=== PATIENT | female | born 1955 | race Caucasian/White ===

== ENCOUNTER → 2016-11-29 | Outpatient (CLI) | payer BC ==
[2016-11-29 11:35] LABS: EKG EKG PERFORMED
[2016-11-29 12:12] LABS: CH 27.5; CHCM 33.3; HCT 38.7 % (34.0-46.0); HDW 2.64; HGB 12.7 gm/dL (11.4-16.0); MCH 27.1 pg (25.0-35.0); MCHC 32.7 g/dL (31.0-37.0); MCV 82.9 fL (80.0-100.0); Mean Platelet Volume 6.9; RBC 4.67 m/uL (3.80-5.40); RDW 13.7 % (11.5-15.5); WBC 5.8 k/uL (3.8-10.6)
[2016-11-29 12:18] LABS: ALT 36 U/L (9-52); AST 23 U/L (14-36); Alkaline Phosphatase 62 U/L (38-126); Anion Gap 11 mmol/L; Blood Urea Nitrogen 14 mg/dL (7-17); Calcium 9.7 mg/dL (8.4-10.2); Carbon Dioxide 26 mmol/L (22-30); Chloride 105 mmol/L (98-107); Glucose 102 mg/dL (74-99); Non-African American GFR(MDRD) >60 (>60 ml/min/1.73 sqM); Potassium 4.2 mmol/L (3.5-5.1); Sodium 142 mmol/L (137-145); Total Bilirubin 0.4 mg/dL (0.2-1.3); Total Protein 6.9 g/dL (6.3-8.2)
[2016-11-29 12:23] LABS: Partial Thromboplastin Time 23.8 sec (22.0-30.0); Prothrombin Time 10.5 sec (9.0-12.0)
[2016-11-29 12:35] LABS: Appearance,Urine Clear (Clear); Bacteria,Urine Rare /hpf; Bilirubin,Urine Negative (Negative); Glucose,Urine (UA) Negative (Negative); Ketones,Urine Negative (Negative); Leukocyte Esterase,Urine Trace (Negative); Nitrite,Urine Negative (Negative); Particle Count 1518; Protein,Urine Negative (Negative); Specific Gravity,Urine 1.011 (1.001-1.035); Squamous Epithelial Cell,Urine <1 /hpf (0-4); UA Billing (MACRO vs. MICRO) MICRO; Urobilinogen,Urine <2.0 mg/dL (<2.0); WBC,Urine 3 /hpf (0-5)
== END | disposition home or self-care (01) ==
LOC: LABPAT 11:19
PROVIDERS: ATTEND Orthopaedic Surgery
DX: Z01.810 Encounter for preprocedural cardiovascular examination (principal); Z01.812 Encounter for preprocedural laboratory examination
CPT/HCPCS: 80053; 81001; 85027; 85610; 85730; 87070; 93005

== ENCOUNTER 2017-01-01 07:30 | Inpatient (IN) | payer BC ==
[2017-01-15 15:58] VITALS: BMI 34.3
[2017-01-22] MEDS ORDERED: MELOXICAM 7.5 MG TAB PO ONE (05:00)
[2017-01-22] MEDS ORDERED: ACETAMINOPHEN TAB 500 MG TAB PO ONE (05:00)
[2017-01-22] MEDS ORDERED: ceFAZolin 2 GM in SODIUM CHLORIDE 0.9% 100 ML IVPB ONE (05:00)
[2017-01-22] MEDS ORDERED: TRANEXAMIC ACID 1,000 MG in SODIUM CHLORIDE 0.9% 100 ML IVPB ONE (05:00)
[2017-01-22] MEDS ORDERED: ONDANSETRON 4 MG/2 ML VIAL IVP ONE (05:27)
[2017-01-22] MEDS ORDERED: HYDROmorphone 1 MG/ML 1 ML SYRINGE IVP PRN ×4 (05:27→16:06)
[2017-01-22] MEDS ORDERED: MIDAZOLAM 2 MG/2 ML VIAL IV PRN (05:27)
[2017-01-22] MEDS ORDERED: DEXAMETHASONE SOD PHOSPHATE 10 MG/ML 1 ML VIAL IV ONE (05:27)
[2017-01-22] MEDS ORDERED: ROPIVACAINE 246.25 MG, EPINEPHrine 0.5 MG, KETOROLAC 30 MG, cloNIDine HCL/PF 80 MCG, WA... MISCELLANE ONE ×5 (09:03)
[2017-01-22] MEDS: LACTATED RINGERS 1,000 ML IV SCH (12:08)
[2017-01-22] MEDS ORDERED: LIDOCAINE 1% 20 ML VIAL (10MG/ML) FOR IV START SQ ONE (12:09)
[2017-01-22 12:13] LABS: Glucose,Whole Blood 107 mg/dL (75-99)
[2017-01-22 12:25] LABS: Appearance,Urine Clear (Clear); Bilirubin,Urine Negative (Negative); Glucose,Urine (UA) Negative (Negative); Ketones,Urine Trace (Negative); Leukocyte Esterase,Urine Small (Negative); Nitrite,Urine Negative (Negative); Particle Count 1988; Protein,Urine Negative (Negative); RBC,Urine <1 /hpf (0-5); Specific Gravity,Urine 1.012 (1.001-1.035); Squamous Epithelial Cell,Urine 1 /hpf (0-4); UA Billing (MACRO vs. MICRO) MICRO; Urobilinogen,Urine <2.0 mg/dL (<2.0); WBC,Urine 5 /hpf (0-5)
[2017-01-22] MEDS ORDERED: MIDAZOLAM 2 MG/2 ML VIAL IV ONE (14:04)
[2017-01-22] MEDS ORDERED: SODIUM CHLORIDE 0.9% 100 ML BAG ONE (14:15)
[2017-01-22] MEDS ORDERED: KETAMINE 10 MG/ML 20 ML VIAL ONE (14:15)
[2017-01-22] MEDS ORDERED: LIDOCAINE 1% INJ 10MG/ML (20 ML MDV) ONE (14:15)
[2017-01-22] MEDS ORDERED: MIDAZOLAM 2 MG/2 ML VIAL ONE (14:15)
[2017-01-22] MEDS ORDERED: TRANEXAMIC ACID 1,000 MG/10 ML VIAL ONE (14:15)
[2017-01-22] MEDS ORDERED: fentaNYL (PF) 50 MCG/ML 2 ML AMP ONE (14:15)
[2017-01-22] MEDS ORDERED: PROPOFOL 10 MG/ML 20 ML VIAL IV ONE (14:15)
[2017-01-22] MEDS: TRANEXAMIC ACID 1,000 MG in SODIUM CHLORIDE 0.9% 100 ML IVPB ONE ×2 (14:37→15:22)
[2017-01-22] MEDS ORDERED: ceFAZolin 3,000 MG in SODIUM CHLORIDE 0.9% IRRIGATIO 3,000 ML IRRIGATION ONE (14:59)
[2017-01-22] MEDS ORDERED: ROPIVACAINE 1,100 MG, SODIUM CHLORIDE 0.9% 330 ML MISCELLANE PRN ×2 (15:21)
[2017-01-22] MEDS ORDERED: LACTATED RINGERS 1,000 ML IV ONE (15:22)
--- NOTE | 2017-01-22 15:36 | P.OP ---
Date of Procedure: 01/22/17 Preoperative Diagnosis: Severe osteoarthritis right knee Postoperative Diagnosis: Severe osteoarthritis right knee Procedure(s) Performed: Right total knee arthroplasty Implants: Arreola [employer] Nephew Oxinium femoral component size 5, right narrow Arreola [employer] Nephew Debra II right nonporous tibial baseplate size 3 Arreola [employer] Nephew size 9 mm Legion XLPE dished articular insert, size 3-4 Arreola [employer] Nephew Debra II resurfacing patellar component, 32 mm All components were cemented using Clarks Simplex P bone cement with Tobramycin The articulation is ceramic on polyethylene. Anesthesia: spinal Surgeon: Rogelio Michael Gambling Broker #1: Heavenly Sesay Estimated Blood Loss (ml): 50 Pathology: other (Bone and cartilage) Condition: stable Disposition: PACU Indications for Procedure: After failure of conservative treatment we discussed the surgical and nonsurgical treatment options at length. Patient wishes to proceed with a total knee arthroplasty. Complications specific to this procedure were discussed at length, including but not limited to infection, bleeding, stiffness , and nerve injury. Patient is aware of all these complications and informed consent was obtained Operative Findings: The operative findings are consistent with severe osteoarthritis of the right knee Description of Procedure: Patient was seen in the preoperative area consent was reviewed and operative site was marked with a skin marker. An adductor canal pain catheter was placed by anesthesia in the preoperative area. Patient was then brought to the operating room and given preoperative antibiotics intravenously. A spinal anesthetic was administered by the anesthesia department. A tourniquet was placed on the upper thigh and the lower extremity was prepped and draped in usual sterile fashion. A gram of transexamic acid was given. A universal timeout was then performed which confirmed the patient's name, surgical site, ALLERGIES, and consent. The lower extremity was then exsanguinated and tourniquet was inflated to 250 mmHg. A standard and anterior midline approach to the knee was performed. The skin and subcutaneous tissue was dissected down to the patellar tendon. A medial parapatellar arthrotomy was then performed. The knee was then extended, the patellar was everted, and the knee was again flexed. Anterior horns of both menisci were excised, and a release was performed to the posterior medial aspect of the knee. On gross visual inspection, there was complete loss of articular cartilage in the medial and patellofemoral joint spaces. There was also significant cartilage damage in the lateral compartment. There were multiple periarticular osteophytes which were then removed with a Ronguer. The femoral canal was then opened with the appropriate drill, and the intramedullary femoral cutting guide was then placed and set for 4 of valgus. The distal femoral cutting block was then pinned in place, and the distal femur was then cut. The cutting block was then removed and the cut was checked for flatness. Next, the sizing guide was then placed and set for 3 external rotation based off of the epicondylar axis and Whitesides line. After the femur was sized, the appropriate 4-in-1 cutting block was then pinned in place. The anterior condyles were cut without notching. The posterior and chamfer cuts were performed while protecting the collateral ligaments. The cutting block was then removed, and the femoral canal was plugged with autologous bone. Attention was then directed to the tibia. The remaining ACL was removed with a Ronguer, and the tibia was then gently subluxed forward with a large bent knee retractor. Any remaining menisci was excised. The posterior lateral corner was cauterized in order to cauterize the lateral geniculate artery. The extra medullary tibial cutting guide was then placed, set for the appropriate rotation , slope, and depth of resection. The proximal tibia cutting guide was then pinned in place. Proximal tibia was then cut and sized. Next trials were then placed with the appropriate-sized insert. The knee was able to fully extend and flex to 130 and was stable throughout all range of motion. The knee was then extended, patella everted. Patella was then measured, and then using an osteotomy guide, the patella was cut at the appropriate level. The patella was then measured and drilled and the patella trial was then placed. The knee was then taken through range of motion with the patella trial and the patella tracked normally. The knee was then extended patella trial was then removed and the patella was everted. Knee was then flexed and lug holes were drilled through the femoral trial and the femoral trial was then removed. The tibial was then exposed, and the tibial broach guide was then pinned in place after it was set for the appropriate rotation to allow for the most coverage without overhang. The tibia was then reamed and broached. The cut surfaces of bone were then irrigated with pulsatile lavage. The posterior structures were injected with the ropivacaine solution. The knee was also irrigated with Irrisept solution. The components were then opened, the cement was mixed, and the components were then cemented in place. The cement was allowed to harden with the knee in full extension. While the cement was hardening, the remaining soft tissues were then injected with a ropivacaine solution, which consisted of 246.25 mg of ropivacaine, 0.5 mg of epinephrine, 30 mg of Toradol, 80 g of clonidine, and 48.45 mL of sterile water, for a total of 100 mL of fluid injected. After the cemented hardened. The tourniquet was released, and hemostasis was obtained. A second gram of transexamic acid was given. The knee was again irrigated. The knee was again taken through range of motion and found to be stable throughout all range of motion of 0-130 , and the patella tracked normally. The fascia was then closed with #2 strata fix suture. The subcutaneous tissue was closed with 3-0 Vicryl and 3-0 strata fix. Dermabond tape was used for the skin and placed with the knee in flexion. The patient was placed in a sterile dressing. Patient was then transferred to recovery room in stable condition. The bilingual administrative assistant GAIL Jurado was required due the complexity surgery and the need for a skilled processing assistant. She assisted in positioning, draping, retraction, and closure of the wound.
[2017-01-22] MEDS ORDERED: HYDROcodone/APAP 5-325MG 1 EACH TAB PO PRN ×2 (16:06)
[2017-01-22] MEDS ORDERED: DIAZEPAM 5 MG TAB PO PRN ×2 (16:06)
[2017-01-22] MEDS ORDERED: ONDANSETRON 4 MG/2 ML VIAL IVP PRN (16:06)
[2017-01-22] MEDS ORDERED: MAGNESIUM HYDROXIDE 2,400 MG/10 ML CUP PO PRN (16:06)
[2017-01-22] MEDS ORDERED: NA PHOS,M-B/NA PHOS,DI-BA 133 ML ENEMA RECTAL PRN (16:06)
[2017-01-22] MEDS ORDERED: BISACODYL 10 MG SUPP RECTAL PRN (16:06)
[2017-01-22] MEDS ORDERED: hydrOXYzine PAMOATE 25 MG CAP PO PRN (16:06)
[2017-01-22] MEDS ORDERED: NALOXONE 0.4 MG/ML 1 ML VIAL IV PRN (16:06)
[2017-01-22 16:19] VITALS: RESP 16
--- NOTE | 2017-01-22 16:39 | XR ---
EXAMINATION TYPE: XR knee limited RT DATE OF EXAM: 01/22/2017 COMPARISON: NONE TECHNIQUE: Two views submitted HISTORY: Post op FINDINGS: There is a prosthetic knee in near anatomic alignment. There is soft tissue edema and emphysema. IMPRESSION: 1. Postoperative change. Appears in near-anatomic alignment
[2017-01-22 16:41] LABS: Glucose,Whole Blood 145 mg/dL (75-99)
--- NOTE | 2017-01-22 20:01 | P.ONQ ---
Anesthesiology Proc Note - PNB - Peripheral Nerve Block Performed Right Adductor Canal Infusion Indication: Acute Post-Operative Pain, Dx/Pain Location (Right Knee) Specifically requested for management of pain by DrBrandi: Rogelio Michael Sedation Type: Sedate with meaningful contact maintained Preparation: Sterile Dressing Position: Supine Catheter: Indwelling Needle Types: Other (see comment) (Pajunk) Needle Size: 100mm (4") Needle Gauge: 18 Injectate: 0.5% Ropivacaine (see comment for volume) (30cc) Blood Aspirated: No Pain Paresthesia on Injection Noted: No Resistance on Injection: Normal Events: Uneventful and Well Tolerated
[2017-01-22 20:52] LABS: Glucose,Whole Blood 179 mg/dL (75-99)
[2017-01-22] MEDS ORDERED: SENNOSIDES-DOCUSATE SODIUM 1 EACH TAB PO SCH (21:00)
[2017-01-22] MEDS: ceFAZolin 2 GM in SODIUM CHLORIDE 0.9% 100 ML IVPB SCH (22:21)
[2017-01-22] MEDS: FLUoxetine HCL 10 MG CAP PO SCH (22:21)
[2017-01-22] MEDS: INSULIN LISPRO (humaLOG) 300 UNIT/3 ML VIAL SQ SCH (22:24)
[2017-01-23] MEDS: SODIUM CHLORIDE 0.9% 1,000 ML IV SCH ×2 (04:06→08:47)
[2017-01-23] MEDS: ceFAZolin 2 GM in SODIUM CHLORIDE 0.9% 100 ML IVPB SCH (05:45)
[2017-01-23] MEDS ORDERED: HYDROcodone/APAP 5-325MG 1 EACH TAB PO STA (06:58)
[2017-01-23 07:13] LABS: Glucose,Whole Blood 122 mg/dL (75-99)
--- NOTE | 2017-01-23 07:13 | P.PN ---
Progress Note - Text Postoperative day # 1 status post total knee arthroplasty, on adductor canal perineural catheter placed for postoperative analgesia. Ropivacaine 0.2% 8 mL per hour through ON-Q pump continuous infusion. Pain is well controlled. On visual analog scale 3/10 Patient is taking PRN oral pain medications. Catheter site: Looks Ok. There is no erythema or tenderness. Continue with the current pain management plan and will follow.
[2017-01-23 07:26] LABS: Basophils % (A) 0 %; CH 27.2; Eosinophils # (A) 0.1 k/uL (0-0.7); Eosinophils % (A) 1 %; HCT 32.7 % (34.0-46.0); HDW 2.58; HGB 10.1 gm/dL (11.4-16.0); Luc # (Auto) 0.19; Luc % (Auto) 2; Lymphocytes # (A) 2.1 k/uL (1.0-4.8); Lymphocytes % (A) 25 %; MCH 26.4 pg (25.0-35.0); MCV 85.3 fL (80.0-100.0); Mean Platelet Volume 7.3; Monocytes # (A) 0.5 k/uL (0-1.0); Monocytes % (A) 5 %; Neutrophils # (A) 5.7 k/uL (1.3-7.7); Neutrophils % (A) 66 %; RBC 3.83 m/uL (3.80-5.40); RDW 15.1 % (11.5-15.5); WBC 8.6 k/uL (3.8-10.6); WBC (Perox) 9.07
[2017-01-23] MEDS ORDERED: PANTOPRAZOLE 40 MG TABLET PO SCH (07:30)
[2017-01-23] MEDS: INSULIN LISPRO (humaLOG) 300 UNIT/3 ML VIAL SQ SCH ×2 (08:45→17:49)
[2017-01-23] MEDS: LACTATED RINGERS 1,000 ML IV SCH (08:46)
[2017-01-23] MEDS ORDERED: MELOXICAM 7.5 MG TAB PO SCH (09:00)
[2017-01-23] MEDS ORDERED: CALCIUM CARB-VIT D 500MG-200UN 1 EACH TAB PO SCH (09:00)
[2017-01-23] MEDS ORDERED: metFORMIN 500 MG TAB PO SCH (09:00)
[2017-01-23] MEDS ORDERED: PIOGLITAZONE 30 MG TAB PO SCH (09:00)
[2017-01-23] MEDS ORDERED: LISINOPRIL-HCTZ 20-25 MG 1 EACH TAB PO SCH (09:00)
[2017-01-23] MEDS ORDERED: ASPIRIN 325 MG TAB PO SCH (09:00)
[2017-01-23] MEDS ORDERED: LINAGLIPTIN 5 MG TABLET PO SCH (09:00)
[2017-01-23 09:25] VITALS: BP 99/63; PULSE 78; TEMP 97.7
--- NOTE | 2017-01-23 09:43 | P.DS ---
Providers Date of admission: 01/22/17 11:18 Expected date of discharge: 01/23/17 Attending physician: Rogelio Michael Consults: 01/22/17 16:06 Consult Physician Routine Consulting Provider: Silverio Orellana Consult Reason/Comments: medical management Do you want consulting provider notified?: Yes Primary care physician: Silverio Orellana - Discharge Diagnosis(es) (1) S/P total knee arthroplasty Current Visit: Yes Status: Acute (2) Primary osteoarthritis of right knee Current Visit: Yes Status: Acute Hospital Course: This is a 61-year-old female with known history of degenerative arthritis of the right knee. The patient presents for evaluation. After discussion and consideration patient elects to proceed with total knee arthroplasty. The patient is seen preoperatively by Dr. Michael and cleared for surgery. Patient is admitted to [facility] on 01/22/2017 for total knee arthroplasty. The procedures performed without complication or sequelae. The patient is doing well postoperatively. Labs and vital signs are stable on day of discharge. On day of discharge patient's knee incision is healing well. There is minimal erythema. There is mild drainage noted at this time. There is minimal soft tissue swelling to the knee. Patient has full foot and ankle motion without difficulty or pain. Neurovascular status to the right lower extremity is intact. Patient is discharged home in good condition. Please see med rec for accurate list of home medications. Plan - Discharge Summary New Discharge Prescriptions: New Aspirin 325 mg PO BID #60 tab HYDROcodone/APAP 5-325MG [Stevenson 5-325] 1 - 2 tab PO Q4-6H PRN #90 tab PRN Reason: Pain Sennosides-Docusate Sodium [Senokot-S] 1 tab PO BID #60 tablet No Action Naproxen Sodium [Aleve] 220 mg PO BID metFORMIN HCL [Glucophage] 500 mg PO BID Lisinopril/Hydrochlorothiazide [Zestoretic 20-25] 1 tab PO DAILY FLUoxetine HCL [PROzac] 10 mg PO BID sitaGLIPtin [Januvia] 100 mg PO DAILY Pioglitazone [Actos] 30 mg PO DAILY Omeprazole/Sodium Bicarbonate [Zegerid 20 mg Capsule] 1 cap PO DAILY Multivitamin [Men's Multi-Vitamin] 1 tab PO DAILY Ivarest 1 applic TOPICAL DAILY Calcium Carbonate/Vitamin D3 [Calcium 600-Vit D3 400 Caplet] 1 tab PO DAILY Discharge Medication List Calcium Carbonate/Vitamin D3 [Calcium 600-Vit D3 400 Caplet] 1 tab PO DAILY 07/03 [History] FLUoxetine HCL [PROzac] 10 mg PO BID 01/15/17 [History] Ivarest 1 applic TOPICAL DAILY 01/15/17 [History] Lisinopril/Hydrochlorothiazide [Zestoretic 20-25] 1 tab PO DAILY 01/15/17 [ History] Multivitamin [Men's Multi-Vitamin] 1 tab PO DAILY 01/15/17 [History] Naproxen Sodium [Aleve] 220 mg PO BID 01/15/17 [History] Omeprazole/Sodium Bicarbonate [Zegerid 20 mg Capsule] 1 cap PO DAILY 01/15/17 [ History] Pioglitazone [Actos] 30 mg PO DAILY 01/15/17 [History] metFORMIN HCL [Glucophage] 500 mg PO BID 01/15/17 [History] sitaGLIPtin [Januvia] 100 mg PO DAILY 01/15/17 [History] Aspirin 325 mg PO BID #60 tab 01/23/17 [Rx] HYDROcodone/APAP 5-325MG [Stevenson 5-325] 1 - 2 tab PO Q4-6H PRN #90 tab 01/23/17 [ Rx] Sennosides-Docusate Sodium [Senokot-S] 1 tab PO BID #60 tablet 01/23/17 [Rx] Follow up Appointment(s)/Referral(s): Rogelio Michael DO [Doctor of Osteopathic Medicine] - 2 Weeks Ambulatory/Diagnostic Orders: Continuous Passive Motion (CPM) Machine [DME.AMB1] Time Frame: 2 Weeks, Location : Determined By Patient Patient Instructions/Handouts: *Surgery [facility] - On-Q Pain Pump Discharge Instructions Activity/Diet/Wound Care/Special Instructions: Weightbearing as tolerated with a walker CPM 5-6h daily Daily dressing changes, keep incision clean and dry May shower if no drainage from incision [facility] with questions or concerns [phone] Discharge Disposition: HOME WITH HOME HEALTH SERVICES
[2017-01-23 11:04] LABS: Hemoglobin A1C 6.7 % (4.2-6.1)
[2017-01-23 11:28] LABS: Glucose,Whole Blood 108 mg/dL (75-99)
[2017-01-23] MEDS: FLUoxetine HCL 10 MG CAP PO SCH (11:35)
--- NOTE | 2017-01-23 13:37 | P.CONS ---
History of Present Illness - Reason for Consult Consult date: 01/23/17 Management of diabetes - History of Present Illness Is a 61-year-old white female well-known to me. She has significant right knee osteoarthritis. She underwent a right total knee arthroplasty with Dr. Rogelio Michael one day ago. She indicates her pain is controlled. She denies any chest pains, pressures, shortness breath. She is having some leg pain, controlled current medications. She has had a bowel movement today. She is tolerating regular diet. Her sugars seem well controlled with Accu-Cheks and Humalog scale. We restarted her Januvia and metformin in the a.m. 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 left hand, laser eye surg. Past Anesthesia/Blood Transfusion Reactions: No Reported Reaction Smoking Status: Former smoker - Past Family History Mother Family Medical History: Cancer, Deep Vein Thrombosis (DVT) Medications and Allergies Home Medications Medication Instructions Recorded Confirmed Type Calcium Carbonate/Vitamin D3 1 tab PO DAILY 01/15/17 01/22/17 History [Calcium 600-Vit D3 400 Caplet] FLUoxetine HCL [PROzac] 10 mg PO BID 01/15/17 01/22/17 History Ivarest 1 applic TOPICAL DAILY 01/15/17 01/22/17 History Lisinopril/Hydrochlorothiazide 1 tab PO DAILY 01/15/17 01/22/17 History [Zestoretic 20-25] Multivitamin [Men's Multi-Vitamin] 1 tab PO DAILY 01/15/17 01/22/17 History Naproxen Sodium [Aleve] 220 mg PO BID 01/15/17 01/22/17 History Omeprazole/Sodium Bicarbonate 1 cap PO DAILY 01/15/17 01/22/17 History [Zegerid 20 mg Capsule] Pioglitazone [Actos] 30 mg PO DAILY 01/15/17 01/22/17 History metFORMIN HCL [Glucophage] 500 mg PO BID 01/15/17 01/22/17 History sitaGLIPtin [Januvia] 100 mg PO DAILY 01/15/17 01/22/17 History Allergies Allergy/AdvReac Type Severity Reaction Status Date / Time No Known Allergies Allergy Verified 01/22/17 16:46 Physical Exam Vitals: Vital Signs Temp Pulse Pulse Pulse Resp BP Pulse Ox 01/23/17 07:00 97.7 F 78 16 99/63 97 01/23/17 02:03 98.1 F 76 16 105/61 95 01/22/17 19:45 82 16 110/72 94 L 01/22/17 19:30 78 16 119/81 96 01/22/17 19:15 89 16 103/65 94 L 01/22/17 19:00 88 16 111/69 96 01/22/17 18:45 87 16 110/75 94 L 01/22/17 18:30 82 16 112/70 93 L 01/22/17 18:15 82 16 102/68 96 01/22/17 18:00 98.1 F 88 16 120/76 96 01/22/17 17:30 83 16 113/65 94 L 01/22/17 17:15 16 113/62 95 01/22/17 17:00 84 16 113/62 96 01/22/17 16:45 83 16 112/60 97 01/22/17 16:30 82 16 114/59 96 01/22/17 16:15 85 16 110/56 96 01/22/17 16:06 98.4 F 84 14 110/56 95 Intake and Output 01/22/17 01/23/17 01/23/17 22:59 06:59 14:59 Intake Total 410 850 480 Output Total 450 Balance -40 850 480 Intake: IV 410 Intake, IV Titration 850 Amount Sodium Chloride 0.9% 1, 650 000 ml @ 65 mls/hr IV . [id number] OC Rx#:[id number] ceFAZolin 2 gm In Sodium 200 Chloride 0.9% 100 ml @ 100 mls/hr IVPB Q8H OC Rx#:[id number] Oral 480 Output: Urine 400 Estimated Blood Loss 50 Other: # Voids 1 # Bowel Movements 1 GENERAL: Well-appearing, well-nourished and in no acute distress. HEAD: Atraumatic, normocephalic. EYES: Pupils equal round and reactive to light, extraocular movements intact, sclera anicteric, conjunctiva are normal. ENT:nares patent, oropharynx clear without exudates. Moist mucous membranes. NECK: Normal range of motion, supple without lymphadenopathy or JVD, no thyromegaly LUNGS: Breath sounds clear to auscultation bilaterally and equal. No wheezes rales or rhonchi. HEART: Regular rate and rhythm without murmurs, rubs or gallops.S1S2 Normal ABDOMEN: Soft, nontender, normoactive bowel sounds. No guarding, no rebound. No masses appreciated. EXTREMITIES: right Knee dressing is clean dry and intact. There is no erythema , significant or ecchymosis noted NEUROLOGICAL: Cranial nerves II through XII grossly intact. Normal speech, normal gait. PSYCH: Normal mood, normal affect. SKIN: Warm, Dry, normal turgor, no rashes or lesions noted. Results CBC & Chem 7: 01/23/17 06:42 Labs: Abnormal Lab Results - Last 24 Hours (Table) 01/22/17 01/22/17 01/23/17 Range/Units 16:38 20:50 06:42 Hgb (11.4-16.0) gm/dL Hct (34.0-46.0) % POC Glucose (mg/dL) 145 H 179 H (75-99) mg/dL Hemoglobin A1c 6.7 H (4.2-6.1) % 01/23/17 01/23/17 01/23/17 Range/Units 06:42 06:51 11:21 Hgb 10.1 L (11.4-16.0) gm/dL Hct 32.7 L (34.0-46.0) % POC Glucose (mg/dL) 122 H 108 H (75-99) mg/dL Hemoglobin A1c (4.2-6.1) % Assessment and Plan Plan: Right knee osteoarthritis, status post right total knee arthroplasty, POD #1: She appears to be doing quite well after knee surgery. Dr. Michael in orthopedics for pain management. Type 2 diabetes: She'll continue on her Januvia and Actos and metformin, Accu- Cheks before meals and at bedtime and Humalog scale while inpatient. Hypertension: She'll continue on her Zestoretic . DVT prophylaxis: Aspirin per orthopedics. GERD/GI prophylaxis: She'll continue on Zegerid which she has at home medically she is doing well and can be discharged home if cleared by ORTHO
== END 2017-01-23 16:07 | disposition home health service (06) | DRG 470 ==
LOC: 2ORMAIN 01-22 11:18 → 3SUR 01-22 17:17
PROVIDERS: ADMIT Orthopaedic Surgery; ATTEND Orthopaedic Surgery
PROC: 0SRC0J9 Replacement of Right Knee Joint with Synthetic Substitute, Cemented, Open Approach (ICD-10-PCS; principal; 2017-01-22 14:05)
DX: M17.11 Unilateral primary osteoarthritis, right knee (principal); I10 Essential (primary) hypertension; E11.9 Type 2 diabetes mellitus without complications; K21.9 Gastro-esophageal reflux disease without esophagitis; Z79.84 Long term (current) use of oral hypoglycemic drugs; Z79.899 Other long term (current) drug therapy; Z87.891 Personal history of nicotine dependence; Z79.1 Long term (current) use of non-steroidal anti-inflammatories (NSAID)
CPT/HCPCS: 81001; 83036; 85025; 88300

== ENCOUNTER → 2017-01-18 | Outpatient (CLI) | payer BC ==
[2017-01-18 14:53] LABS: Basophils % (A) 1 %; CH 27.2; CHCM 32.8; Eosinophils # (A) 0.2 k/uL (0-0.7); Eosinophils % (A) 2 %; HCT 39.2 % (34.0-46.0); HDW 2.63; HGB 12.6 gm/dL (11.4-16.0); Luc # (Auto) 0.19; Luc % (Auto) 3; Lymphocytes # (A) 2.4 k/uL (1.0-4.8); Lymphocytes % (A) 32 %; MCH 26.8 pg (25.0-35.0); MCHC 32.2 g/dL (31.0-37.0); MCV 83.2 fL (80.0-100.0); Mean Platelet Volume 7.3; Monocytes # (A) 0.4 k/uL (0-1.0); Monocytes % (A) 5 %; Neutrophils # (A) 4.3 k/uL (1.3-7.7); Neutrophils % (A) 58 %; RBC 4.71 m/uL (3.80-5.40); RDW 14.9 % (11.5-15.5); WBC 7.5 k/uL (3.8-10.6); WBC (Perox) 7.97
[2017-01-18 14:58] LABS: Appearance,Urine Cloudy (Clear); Bacteria,Urine Rare /hpf; Bilirubin,Urine Negative (Negative); Glucose,Urine (UA) Negative (Negative); Ketones,Urine Trace (Negative); Leukocyte Esterase,Urine Large (Negative); Nitrite,Urine Negative (Negative); Particle Count 3917; Protein,Urine Negative (Negative); RBC,Urine 2 /hpf (0-5); Squamous Epithelial Cell,Urine 5 /hpf (0-4); UA Billing (MACRO vs. MICRO) MICRO; Urobilinogen,Urine <2.0 mg/dL (<2.0); WBC,Urine 44 /hpf (0-5)
[2017-01-18 14:59] LABS: Partial Thromboplastin Time 23.6 sec (22.0-30.0); Prothrombin Time 10.5 sec (9.0-12.0)
[2017-01-18 15:05] LABS: ALT 37 U/L (9-52); AST 27 U/L (14-36); Alkaline Phosphatase 63 U/L (38-126); Anion Gap 10 mmol/L; Blood Urea Nitrogen 14 mg/dL (7-17); Calcium 9.6 mg/dL (8.4-10.2); Carbon Dioxide 26 mmol/L (22-30); Chloride 103 mmol/L (98-107); Glucose 98 mg/dL (74-99); Non-African American GFR(MDRD) >60 (>60 ml/min/1.73 sqM); Potassium 3.9 mmol/L (3.5-5.1); Sodium 139 mmol/L (137-145); Total Bilirubin 0.5 mg/dL (0.2-1.3); Total Protein 7.1 g/dL (6.3-8.2)
== END | disposition home or self-care (01) ==
LOC: LABPAT 14:31
PROVIDERS: ATTEND Orthopaedic Surgery
DX: Z01.812 Encounter for preprocedural laboratory examination (principal)
CPT/HCPCS: 80053; 81001; 85025; 85610; 85730

== ENCOUNTER → 2017-05-08 | Outpatient (CLI) | payer BC ==
--- NOTE | 2017-05-08 17:47 | US ---
EXAMINATION TYPE: US venous doppler duplex LE LT DATE OF EXAM: 05/08/2017 5:14 PM COMPARISON: CLINICAL HISTORY: I80.9 Thrombophlebitis. Left leg pain. Patient states on January 22 she had a righ t total knee replacement. No hx of blood clots or on blood thinners. SIDE PERFORMED: Left TECHNIQUE: The lower extremity deep venous system is examined utilizing real time linear array sonog giuseppe with graded compression, doppler sonography and color-flow sonography. VESSELS IMAGED: External Iliac Vein (EIV) Common Femoral Vein Deep Femoral Vein Greater Saphenous Vein * Femoral Vein Popliteal Vein Small Saphenous Vein * Proximal Calf Veins (* superficial vessels) Left Leg: Appears negative for DVT Negative exam. No evidence of deep venous thrombosis in the left leg. IMPRESSION: Grayscale, color doppler, spectral doppler imaging performed of the deep veins of the lo wer extremities. There is normal flow, compressibility, vascular waveforms.
== END | disposition home or self-care (01) ==
LOC: RADUSMAIN 16:35
PROVIDERS: ATTEND Orthopaedic Surgery
DX: I80.9 Phlebitis and thrombophlebitis of unspecified site (principal); Z96.651 Presence of right artificial knee joint

== ENCOUNTER → 2018-03-26 | Outpatient (CLI) | payer BC ==
--- NOTE | 2018-03-26 12:13 | MM ---
Reason for exam: additional evaluation requested from prior study. Last mammogram was performed 2 years and 2 months ago. History: Patient is postmenopausal and is nulliparous. Family history of breast cancer in maternal aunt. Physical Findings: Nurse did not find any significant physical abnormalities on exam. MG 3D Diag Mammo W/Cad ANTONETTE Bilateral CC and MLO view(s) were taken. Prior study comparison: January 17, 2016, bilateral MG 3d diag mammo w/cad ANTONETTE. January 27, 2015, left breast MG work up mamm w CAD LT. The breast tissue is heterogeneously dense. This may lower the sensitivity of mammography. Finding #1: There is a typically benign, stable, circumscribed, round, oval masses. Finding #2: There are typically benign calcifications in both breasts. No suspicious abnormality. No significant changes in finding since January 17, 2016 and January 27, 2015. These results were verbally communicated with the patient and result sheet given to the patient on 03/26/18. ASSESSMENT: Benign, BI-RAD 2 RECOMMENDATION: Routine screening mammogram of both breasts in 1 year.
== END | disposition home or self-care (01) ==
LOC: RADMAMWWP 10:44
PROVIDERS: ATTEND Family Medicine
DX: R92.8 Other abnormal and inconclusive findings on diagnostic imaging of breast (principal)
CPT/HCPCS: 77062; 77066

== ENCOUNTER → 2019-07-03 | Outpatient (CLI) | payer BC ==
--- NOTE | 2019-07-06 14:00 | MM ---
Reason for exam: screening (asymptomatic). Last mammogram was performed 1 year and 3 months ago. History: Patient is postmenopausal and is nulliparous. Family history of breast cancer in maternal aunt. Physical Findings: A clinical breast exam by your physician is recommended on an annual basis and results should be correlated with mammographic findings. MG 3D Screening Mammo W/Cad Bilateral CC and MLO view(s) were taken. Prior study comparison: March 26, 2018, bilateral MG 3d diag mammo w/cad ANTONETTE. January 17, 2016, bilateral MG 3d diag mammo w/cad ANTONETTE. The breast tissue is heterogeneously dense. This may lower the sensitivity of mammography. There are benign appearing round calcifications in the left breast. There is chronic nodularity bilaterally. There is no discrete abnormality. ASSESSMENT: Benign, BI-RAD 2 RECOMMENDATION: Routine screening mammogram of both breasts in 1 year.
== END | disposition home or self-care (01) ==
LOC: RADMAMWWP 11:12
PROVIDERS: ATTEND Family Medicine
DX: Z12.31 Encounter for screening mammogram for malignant neoplasm of breast (principal)
CPT/HCPCS: 77063; 77067

== ENCOUNTER 2019-12-11 19:02 | Emergency (ER) | payer BC ==
[2019-12-11 19:13] VITALS: TEMP 98.6
[2019-12-11] MEDS ORDERED: SODIUM CHLORIDE 0.9% 500 ML 500 ML IV STA (19:33)
[2019-12-11] MEDS ORDERED: ASPIRIN 81 MG PO STA (19:33)
--- NOTE | 2019-12-11 19:35 | ED ---
General Adult HPI - General Chief complaint: Neuro Symptoms/Deficit Stated complaint: Lip numbness Time Seen by Provider: 12/11/19 19:17 Source: patient Mode of arrival: ambulatory Limitations: no limitations - History of Present Illness Initial comments: Dictation was produced using KAL dictation software. please excuse any grammatical, word or spelling errors. This patient was cared for during a federal and state declared state of emergenc y secondary to Covid 19 Chief Complaint: 64-year-old female past medical history diabetes, hypertension presents with left lip numbness. History of Present Illness: 64-year-old female she has had multiple episodes of left lip numbness. Patient states that since yesterday she had 3-4 episodes were left lower lip would go numb for several seconds. It would happen intermittently. No exacerbating or mitigating factors. Patient is concerned she was having a stroke. She called a special hotline told her to seek medical attention. Patient has history of diabetes, hypertension. She denies any history of stroke in the past. As no other neurologic symptoms. The ROS documented in this emergency department record has been reviewed and confirmed by me. Those systems with pertinent positive or negative responses have been documented in the HPI. All other systems are other negative and/or noncontributory. PHYSICAL EXAM: General Impression: Alert and oriented x3, not in acute distress HEENT: Normocephalic atraumatic, extra-ocular movements intact, pupils equal and reactive to light bilaterally, mucous membranes moist. Cardiovascular: Heart regular rate and rhythm Chest: Able to complete full sentences, no retractions, no tachypnea Abdomen: abdomen soft, non-tender, non-distended, no organomegaly Musculoskeletal: Pulses present and equal in all extremities, no peripheral edema Motor: no focal deficits noted Neurological: CN II-XII grossly intact, no focal motor or sensory deficits noted, NIH 0 Skin: Intact with no visualized rashes Psych: Normal affect and mood ED course: 64-year-old female presents with intermittent episodes of left lower lip numbness. Patient does have stroke risk factors. Patient's asymptomatic at this time. NIH score is 0. Upon arrival are within acceptable limits. Laboratory evaluation obtained. X-ray and computed tomography scan of the brain is unremarkable. Patient reevaluated at bedside after short ER observation. Patient has not had any recurrence symptoms of left lower lip numbness. She states she feels well at this time. Disposition options were discussed with patient. Patient has an ABCD 2 score of 2 she is considered low risk. [facility] or to be discharge and follow-up with her primary care physician and to have strict return precautions. Patient preferred to be discharged to follow-up with her primary care doctor. She understands that she should seek emergent medical attention if she has recurrence of symptoms or worsening symptoms especially one-sided deficits. Patient is understandable and agreeable to plan. Patient's family care physician is Dr. Orellana. Dr. Orellana is made aware of the patient's presentation and disposition plan. Patient was given an aspirin. EKG interpretation: Ventricular rate 76, normal sinus rhythm, WV interval 136, QRS 92, QTc 447. No WV prolongation, no QTC prolongation, no ST or T-wave changes noted. EKG compared to 11/29/2016 showing no changes. Overall, this EKG is unremarkable - Related Data Home Medications Medication Instructions Recorded Confirmed Ivarest 1 applic TOPICAL DAILY 01/15/17 01/22/17 RX: Calcium Carbonate/Vitamin D3 1 tab PO DAILY 01/15/17 01/22/17 [Calcium 600-Vit D3 400 Caplet] RX: FLUoxetine HCL [PROzac] 10 mg PO BID 01/15/17 01/22/17 RX: Lisinopril/Hydrochlorothiazide 1 tab PO DAILY 01/15/17 01/22/17 [Zestoretic 20-25] RX: Multivitamin [Men's 1 tab PO DAILY 01/15/17 01/22/17 Multi-Vitamin] RX: Omeprazole/Sodium Bicarbonate 1 cap PO DAILY 01/15/17 01/22/17 [Zegerid 20 mg Capsule] RX: Pioglitazone [Actos] 30 mg PO DAILY 01/15/17 01/22/17 RX: metFORMIN HCL [Glucophage] 500 mg PO BID 01/15/17 01/22/17 RX: sitaGLIPtin [Januvia] 100 mg PO DAILY 01/15/17 01/22/17 Previous Rx's Medication Instructions Recorded HYDROcodone/APAP 5-325MG [[place] 1 - 2 tab PO Q4-6H PRN #90 tab 01/23/17 5-325] RX: Aspirin 325 mg PO BID tab 01/23/17 RX: Aspirin 325 mg PO BID #60 tab 01/23/17 RX: Meloxicam [Mobic] 7.5 mg PO DAILY tab 01/23/17 Sennosides-Docusate Sodium 1 tab PO BID #60 tablet 01/23/17 [Senokot-S] Allergies Allergy/AdvReac Type Severity Reaction Status Date / Time No Known Allergies Allergy Verified 12/11/19 19:13 Review of Systems ROS Statement: Those systems with pertinent positive or pertinent negative responses have been documented in the HPI. ROS Other: All systems not noted in ROS Statement are negative. Past Medical History Past Medical History: Diabetes Mellitus, GERD/Reflux, Hypertension, Osteoarthritis (OA), Skin Disorder Additional Past Medical History / Comment(s): currently has poison salvador on both legs,both arms-still oozing, will inform surgeon History of Any Multi-Drug Resistant Organisms: None Reported Past Surgical History: Orthopedic Surgery Additional Past Surgical History / Comment(s): fatty tumor removed from shoulder, repair of fx. left hand, laser eye surg. Past Anesthesia/Blood Transfusion Reactions: No Reported Reaction Past Psychological History: Anxiety Smoking Status: Former smoker - Past Family History Mother Family Medical History: Cancer, Deep Vein Thrombosis (DVT) General Exam Limitations: no limitations Course Vital Signs 12/11/19 12/11/19 19:10 20:10 Temperature 98.6 F Pulse Rate 83 72 Respiratory 16 18 Rate Blood Pressure 117/63 103/62 O2 Sat by Pulse 98 100 Oximetry Medical Decision Making - Lab Data Result diagrams: 12/11/19 19:35 12/11/19 19:35 Lab Results 12/11/19 12/11/19 12/11/19 Range/Units 19:35 19:35 19:35 WBC 6.6 (3.8-10.6) k/uL RBC 4.13 (3.80-5.40) m/uL Hgb 10.7 L (11.4-16.0) gm/dL Hct 33.8 L (34.0-46.0) % MCV 81.8 (80.0-100.0) fL MCH 25.9 (25.0-35.0) pg MCHC 31.6 (31.0-37.0) g/dL RDW 14.8 (11.5-15.5) % Plt Count 267 (150-450) k/uL Neutrophils % 53 % Lymphocytes % 35 % Monocytes % 6 % Eosinophils % 3 % Basophils % 1 % Neutrophils # 3.5 (1.3-7.7) k/uL Lymphocytes # 2.3 (1.0-4.8) k/uL Monocytes # 0.4 (0-1.0) k/uL Eosinophils # 0.2 (0-0.7) k/uL Basophils # 0.0 (0-0.2) k/uL PT 9.7 (9.0-12.0) sec INR 0.9 (<1.2) APTT 23.3 (22.0-30.0) sec Sodium 130 L (137-145) mmol/L Potassium 3.6 (3.5-5.1) mmol/L Chloride 94 L (98-107) mmol/L Carbon Dioxide 25 (22-30) mmol/L Anion Gap 11 mmol/L BUN 18 H (7-17) mg/dL Creatinine 0.87 (0.52-1.04) mg/dL Est GFR (CKD-EPI)AfAm 82 (>60 ml/min/1.73 sqM) Est GFR (CKD-EPI)NonAf 71 (>60 ml/min/1.73 sqM) Glucose 165 H (74-99) mg/dL Calcium 9.3 (8.4-10.2) mg/dL Total Bilirubin 0.3 (0.2-1.3) mg/dL AST 23 (14-36) U/L ALT 14 (4-34) U/L Alkaline Phosphatase 75 (38-126) U/L Troponin I (0.000-0.034) ng/mL Total Protein 6.6 (6.3-8.2) g/dL Albumin 4.0 (3.5-5.0) g/dL 12/11/19 Range/Units 19:35 WBC (3.8-10.6) k/uL RBC (3.80-5.40) m/uL Hgb (11.4-16.0) gm/dL Hct (34.0-46.0) % MCV (80.0-100.0) fL MCH (25.0-35.0) pg MCHC (31.0-37.0) g/dL RDW (11.5-15.5) % Plt Count (150-450) k/uL Neutrophils % % Lymphocytes % % Monocytes % % Eosinophils % % Basophils % % Neutrophils # (1.3-7.7) k/uL Lymphocytes # (1.0-4.8) k/uL Monocytes # (0-1.0) k/uL Eosinophils # (0-0.7) k/uL Basophils # (0-0.2) k/uL PT (9.0-12.0) sec INR (<1.2) APTT (22.0-30.0) sec Sodium (137-145) mmol/L Potassium (3.5-5.1) mmol/L Chloride (98-107) mmol/L Carbon Dioxide (22-30) mmol/L Anion Gap mmol/L BUN (7-17) mg/dL Creatinine (0.52-1.04) mg/dL Est GFR (CKD-EPI)AfAm (>60 ml/min/1.73 sqM) Est GFR (CKD-EPI)NonAf (>60 ml/min/1.73 sqM) Glucose (74-99) mg/dL Calcium (8.4-10.2) mg/dL Total Bilirubin (0.2-1.3) mg/dL AST (14-36) U/L ALT (4-34) U/L Alkaline Phosphatase (38-126) U/L Troponin I <0.012 (0.000-0.034) ng/mL Total Protein (6.3-8.2) g/dL Albumin (3.5-5.0) g/dL Disposition Clinical Impression: TIA (transient ischemic attack) Disposition: HOME SELF-CARE Condition: Fair Instructions (If sedation given, give patient instructions): Transient Ischemic Attack (ED) Additional Instructions: Today you were evaluated for transient ischemic attack. This is considered a mini stroke. It is important that you seek immediate medical attention with any recurrence or any sort of new strokelike symptoms. Symptoms can be weakness, numbness that someone side of the body, confusion or slurred speech. The sooner you come to the emergency department the more likely it is you make a significant recovery. Otherwise you aren't strongly advised to follow-up with her primary care physician as soon as possible. Is patient prescribed a controlled substance at d/c from ED?: No Referrals: Silverio Orellana MD [Primary Care Provider] - 1-2 days Time of Disposition: 20:36
[2019-12-11 19:49] LABS: Basophils % (A) 1 %; Eosinophils # (A) 0.2 k/uL (0-0.7); Eosinophils % (A) 3 %; HCT 33.8 % (34.0-46.0); HGB 10.7 gm/dL (11.4-16.0); Lymphocytes # (A) 2.3 k/uL (1.0-4.8); Lymphocytes % (A) 35 %; MCH 25.9 pg (25.0-35.0); MCHC 31.6 g/dL (31.0-37.0); MCV 81.8 fL (80.0-100.0); Mean Platelet Volume 6.9; Monocytes # (A) 0.4 k/uL (0-1.0); Monocytes % (A) 6 %; Neutrophils # (A) 3.5 k/uL (1.3-7.7); Neutrophils % (A) 53 %; Platelet Count 267 k/uL (150-450); RBC 4.13 m/uL (3.80-5.40); RDW 14.8 % (11.5-15.5); WBC 6.6 k/uL (3.8-10.6)
--- NOTE | 2019-12-11 19:54 | CT ---
EXAMINATION TYPE: CT brain wo con DATE OF EXAM: 12/11/2019 COMPARISON: None HISTORY: facial numbness CT DLP: 1098.4 mGycm Automated exposure control for dose reduction was used. Ventricles have normal size. There is no mass effect nor midline shift. There is no sign of intracran ial hemorrhage. Calvarium is intact. There is no evidence of cerebral edema. IMPRESSION: Negative unenhanced head CT scan.
--- NOTE | 2019-12-11 19:55 | XR ---
EXAMINATION TYPE: XR chest 2V DATE OF EXAM: 12/11/2019 COMPARISON: NONE HISTORY: Altered mental status TECHNIQUE: FINDINGS: Heart is normal. Lungs are clear of infiltrate. There is no heart failure. There is no pleu ral effusion. Bony thorax is intact. IMPRESSION: No active cardiopulmonary disease.
[2019-12-11 20:01] LABS: Calcium 9.3 mg/dL (8.4-10.2); Potassium 3.6 mmol/L (3.5-5.1); Total Bilirubin 0.3 mg/dL (0.2-1.3); Total Protein 6.6 g/dL (6.3-8.2)
[2019-12-11 20:13] VITALS: BP 103/62; PULSE 72; RESP 18
[2019-12-11 20:15] LABS: INR 0.9 (<1.2); Partial Thromboplastin Time 23.3 sec (22.0-30.0); Prothrombin Time 9.7 sec (9.0-12.0)
== END 2019-12-11 21:06 | disposition home or self-care (01) ==
LOC: EC 19:02
DX: G45.9 Transient cerebral ischemic attack, unspecified (principal); E11.9 Type 2 diabetes mellitus without complications; I10 Essential (primary) hypertension; K21.9 Gastro-esophageal reflux disease without esophagitis; F41.9 Anxiety disorder, unspecified; Z79.84 Long term (current) use of oral hypoglycemic drugs; Z79.899 Other long term (current) drug therapy; Z87.891 Personal history of nicotine dependence
CPT/HCPCS: 36415; 70450; 71046; 80053; 84484; 85025; 85610; 85730; 93005; 96360; 99284

== ENCOUNTER → 2020-01-05 | Outpatient (CLI) | payer BC ==
--- NOTE | 2020-01-05 15:37 | XR ---
EXAMINATION TYPE: XR hand complete LT DATE OF EXAM: 01/05/2020 COMPARISON: NONE HISTORY: 64-year-old female S60.222A TECHNIQUE: 3 views FINDINGS: Chronic healed fracture deformity of the fifth metacarpal shaft. Mild/moderate degenerative change at the first CMC joint with marginal spurring and joint space narrowing. [id number] degenerative spurring at the second DIP joint. Otherwise, no acute fracture, subluxation, dislocation. IMPRESSION: Old healed fracture deformity of the fifth metacarpal shaft. Some osteoarthritic change at the base o f the thumb and the index finger DIP joint. No acute osseous abnormality seen.
== END | disposition home or self-care (01) ==
LOC: RADXRMAIN 14:41
PROVIDERS: ATTEND Family Medicine
DX: S60.222A Contusion of left hand, initial encounter (principal); Z87.81 Personal history of (healed) traumatic fracture

== ENCOUNTER → 2020-08-03 | Outpatient (CLI) | payer MEDICARE ==
--- NOTE | 2020-08-03 15:18 | XR ---
EXAMINATION TYPE: XR Hip Complete RT DATE OF EXAM: 08/03/2020 CLINICAL HISTORY: pain TECHNIQUE: AP and frogleg views of the right hip are obtained. COMPARISON: None. FINDINGS: There is no acute fracture/dislocation evident. The joint space appears within normal li mits. The overlying soft tissue appears unremarkable. IMPRESSION: 1. There is no acute fracture or dislocation. ICD 10 NO FRACTURE, INITIAL EVALUATION
--- NOTE | 2020-08-03 15:33 | XR ---
EXAMINATION TYPE: XR lumbosacral spine min 4V DATE OF EXAM: 08/03/2020 CLINICAL HISTORY: pain COMPARISON: NONE TECHNIQUE: Frontal, lateral, and oblique images of the lumbar spine are obtained. FINDINGS: There are 5 lumbar type vertebral bodies identified. The lumbar spine shows satisfactory alignment without evidence of acute fracture or dislocation. Vertebral body heights are within normal limits. Moderate multilevel degenerative disc space narrowing. Mild curvature convex to the right. The overlying soft tissue appears unremarkable. IMPRESSION: No acute fracture or dislocation is seen in the lumbar spine.ICD 10 NO FRACTURE, INITIAL EVALUATION
== END | disposition home or self-care (01) ==
LOC: RADXRMAIN 13:47
PROVIDERS: ATTEND Family Medicine
DX: M54.5 Low back pain (principal); M25.551 Pain in right hip
CPT/HCPCS: 72110; 73502

== ENCOUNTER → 2020-10-27 | Outpatient (CLI) | payer MEDICARE ==
--- NOTE | 2020-10-28 15:01 | MM ---
Reason for exam: screening (asymptomatic). Last mammogram was performed 1 year and 4 months ago. History: Patient is postmenopausal and is nulliparous. Family history of breast cancer in maternal aunt. Physical Findings: A clinical breast exam by your physician is recommended on an annual basis and results should be correlated with mammographic findings. MG 3D Screening Mammo W/Cad Bilateral CC and MLO view(s) were taken. Prior study comparison: July 03, 2019, bilateral MG 3d screening mammo w/cad. March 26, 2018, bilateral MG 3d diag mammo w/cad [facility]. The breast tissue is heterogeneously dense. This may lower the sensitivity of mammography. No significant changes when compared with prior studies. ASSESSMENT: Benign, BI-RAD 2 RECOMMENDATION: Routine screening mammogram of both breasts in 1 year.
== END | disposition home or self-care (01) ==
LOC: RADMAMWWP 15:15
PROVIDERS: ATTEND Family Medicine
DX: Z12.31 Encounter for screening mammogram for malignant neoplasm of breast (principal); Z78.0 Asymptomatic menopausal state; Z80.3 Family history of malignant neoplasm of breast
CPT/HCPCS: 77063; 77067

== ENCOUNTER → 2020-11-24 | Outpatient (CLI) | payer MEDICARE | END | disposition home or self-care (01) | LOC: LABWHC1 14:01 | PROVIDERS: ATTEND Nurse Practitioner Women's Health | DX: H81.13 Benign paroxysmal vertigo, bilateral (principal); R53.83 Other fatigue; R06.02 Shortness of breath | CPT/HCPCS: 36415; 93005 ==

== ENCOUNTER → 2020-12-01 | Outpatient (CLI) | payer MEDICARE ==
[~2020-12-01] MED LIST: DOBUTamine DRIP for NUC MED 500 MG in DEXTROSE/WATER 1 250ML.BAG IV PRN
--- NOTE | 2020-12-01 15:23 | ECHOS ---
STRESS ECHOCARDIOGRAM LUMASON: INDICATIONS: Dyspnea, fatigue MEDICATIONS: BASELINE HEART RATE: 63 BASELINE BLOOD PRESSURE: 96/57 MAXIMUM HEART RATE: 102 MAXIMUM BLOOD PRESSURE: 114/53 85% MPHR: 132 100% MPHR: 155 METS: N/A MAXIMUM STAGE REACHED: 3 TOTAL EXERCISE TIME: 11:32 CLINICAL INFORMATION: Baseline rhythm is a sinus mechanism, rate of 63, normal axis and intervals. Normal echocardiogram. Baseline blood pressure 96/57 mmHg. Patient received an infusion of dobutamine per protocol. Peak rate 102 beats per minute which is equal to 66% of maximum predicted heart rate. Peak blood pressure 94/46 mmHg. Electrocardiograph monitoring revealed no evidence of diagnostic ischemic ST deviation. Baseline echocardiogram revealed normal wall thickening and motion. At peak infusion, there was normal wall motion augmentation with no hypokinesis or dyskinesis. CONCLUSION: 1. Nondiagnostic electrocardiograph response to dobutamine infusion secondary to the inability to achieve 85% of maximum predicted heart rate. 2. Nondiagnostic stress echocardiogram secondary to the inability to achieve 85% of maximum predicted heart rate. At the rate achieved, there was no evidence of stress- induced ischemia. MMODL / IJN: [id number] /
== END | disposition home or self-care (01) ==
LOC: RADNMMAIN 08:47
PROVIDERS: ATTEND Family Medicine
DX: R06.00 Dyspnea, unspecified (principal); R53.83 Other fatigue
CPT/HCPCS: C8930; J1250; Q9950; 93351

== ENCOUNTER → 2021-09-15 | Outpatient (CLI) | payer MEDICARE ==
--- NOTE | 2021-09-16 18:40 | US ---
EXAMINATION TYPE: US extremity nonvasc mass RT DATE OF EXAM: 09/15/2021 COMPARISON: NONE CLINICAL HISTORY: 66-year-old female R22.41 LOCALIZED SWELLING MASS LUMP LOWER LIMB. TECHNIQUE: Targeted ultrasound examination at the site of patient's palpable abnormality medial right thigh. FINDINGS: Crotch Breaker notes: Well circumscribed mass at patients palpable measuring 2.0 x 1.1 x 2.3cm IMPRESSION: Findings suggest a 2.3 cm subcutaneous lipoma just below the skin surface at the patient's medial rig ht thigh palpable site. This can be followed clinically. If any enlargement is noted or if the area b ecomes symptomatic, surgical excision could be considered.
== END | disposition home or self-care (01) ==
LOC: RADUSWWP 14:57
PROVIDERS: ATTEND Family Medicine
DX: R22.41 Localized swelling, mass and lump, right lower limb (principal)

== ENCOUNTER → 2021-12-13 | Outpatient (CLI) | payer MEDICARE ==
--- NOTE | 2021-12-13 12:06 | US ---
EXAMINATION TYPE: US abdomen complete DATE OF EXAM: 12/13/2021 COMPARISON: NONE CLINICAL HISTORY: K76.9 LIVER DISEASE. Liver lesion seen on MRI at another facility. EXAM MEASUREMENTS: Liver Length: 11.3 cm Gallbladder Wall: 0.2 cm CBD: 0.5 cm Spleen: 11.0 cm Right Kidney: 10.6 x 4.5 x 5.1 cm Left Kidney: 9.6 x 5.6 x 5.3 cm Pancreas: visualized portions wnl Liver: multiple complex cystic areas throughout, largest left lobe measures 4.2 x 3.5 x 3.9 cm. Gallbladder: No stones seen Evidence for sonographic Patterson's sign: No CBD: wnl Spleen: wnl Right Kidney: No hydronephrosis or masses seen Left Kidney: No hydronephrosis or masses seen Upper IVC: wnl Abd Aorta: wnl IMPRESSION: 1. Multiple complex septated cysts within the liver
--- NOTE | 2021-12-14 08:03 | MM ---
Reason for Exam: Screening (asymptomatic). Last mammogram was performed 1 year(s) and 1 month(s) ago. Patient History: Menarche at age 14. Patient has no children. Postmenopausal. Patient used Hormonal Contraceptives for 15 years. Estrogen and Progesterone, starting at age 50 for 3 years. Maternal aunt had breast cancer. Risk Values: Susi 5 year model risk: 1.7%. NCI Lifetime model risk: 6.1%. Prior Study Comparison: 03/26/2018 Bilateral Diagnostic Mammogram, [facility]. 07/03/2019 Bilateral Screening Mammogram, [facility]. 10/27/2020 Bilateral Screening Mammogram, [facility]. Tissue Density: The breast tissue is heterogeneously dense. This may lower the sensitivity of mammography. Findings: Analyzed By CAD. There is no suspicious group of microcalcifications or new suspicious mass in either breast. Stable benign-appearing calcifications both breasts. Overall Assessment: Benign, BI-RAD 2 Management: Screening Mammogram of both breasts in 1 year. A clinical breast exam by your physician is recommended on an annual basis and results should be correlated with mammographic findings. Electronically signed and approved by: Rafael Dominguez M.D. Radiologis
== END | disposition home or self-care (01) ==
LOC: RADUSWWP 06:40
PROVIDERS: ATTEND Family Medicine
DX: Z00.00 Encounter for general adult medical examination without abnormal findings (principal); Z12.31 Encounter for screening mammogram for malignant neoplasm of breast; K76.9 Liver disease, unspecified
CPT/HCPCS: 76700; 77063; 77067

== ENCOUNTER → 2021-12-14 | Outpatient (CLI) | payer MEDICARE ==
--- NOTE | 2021-12-14 12:53 | MR ---
EXAMINATION TYPE: MR brain and iac wo/w con DATE OF EXAM: 12/14/2021 12:40 PM COMPARISON: NONE HISTORY: Hearing loss TECHNIQUE: Multiplanar and multispin-echo imaging of the brain was performed both before and after the administr ation of contrast. High-resolution images are obtained of the internal auditory canals performed uti lizing 9 mL intravenous Gadavist contrast. The ventricles, basal cisterns and sulci overlying the cerebral convexities are within normal limits. There is no evidence for midline shift or mass effect. Acute intracranial hemorrhage or extra-axial collection is not evident. There are no abnormal areas of increased or decreased signal intensity within the brain parenchyma. High-resolution imaging of the internal auditory canals fails demonstrate evidence for an enhancing a coustic schwannoma or cerebellopontine cistern angle mass. Following contrast administration, there is no evidence for pathologic enhancement or enhancing mass. The paranasal sinuses and mastoid air cells are well-aerated. IMPRESSION: 1. No evidence of acoustic schwannoma or cerebellopontine angle mass.
== END | disposition home or self-care (01) ==
LOC: RADMRIMAIN 11:21
PROVIDERS: ATTEND Otolaryngology
DX: R42 Dizziness and giddiness (principal)
CPT/HCPCS: 70553; A9585

== ENCOUNTER 2022-05-23 11:38 | Emergency (ER) | payer MEDICARE ==
[2022-05-23 12:14] VITALS: TEMP 98.2
[2022-05-23] MEDS ORDERED: KETOROLAC 15 MG/ML 1 ML VIAL IM STA (15:39)
--- NOTE | 2022-05-23 16:20 | CT ---
EXAMINATION TYPE: CT brain cspine wo con DATE OF EXAM: 05/23/2022 COMPARISON: Prior CT brain December 11, 2019 HISTORY: Fall injury with headache and neck pain CT DLP: 1442.6 mGycm. Automated Exposure Control for Dose Reduction was Utilized. TECHNIQUE: CT scan of the head and cervical spine are performed without contrast. FINDINGS: There is no acute intracranial hemorrhage or midline shift identified. Mild ventricular a nd sulcal prominence redemonstrated. Mild low-attenuation in the periventricular white matter. The c alvarium is intact. The globes are intact and the visualized sinuses are clear. Made. The nasal septu m redemonstrated deviated to right of midline. Cervical spine is visualized in its entirety from C1 through upper thoracic levels and demonstrates s light grade 1 retrolisthesis C5 on C6 without evidence of acute fracture or dislocation. Prevertebra l soft tissue appears within normal limits. The C1-C2 articulation is within normal limits on the co tanesha images. Vertebral body heights are maintained. Mild to moderate disc space narrowing and spurr ing C5-C6 level. Posterior spur disc complex effaces the anterior thecal sac at C5-C6 level on sagitt al image 44. Axial images show no suspicious abnormality. Heterogeneous slightly enlarged thyroid gland is present . Lung apices show no pneumothorax. IMPRESSION: 1. There is no acute fracture or dislocation evident in the cervical spine. 2. No acute intracranial hemorrhage or midline shift is seen. No significant change from prior brain CT.
--- NOTE | 2022-05-23 16:30 | XR ---
EXAMINATION TYPE: XR ankle complete LT, XR foot complete LT DATE OF EXAM: 05/23/2022 CLINICAL HISTORY: Fall injury with pain. TECHNIQUE: Frontal, lateral and oblique images of the left ankle and foot are obtained. COMPARISON: None. FINDINGS: Osseous structures are demineralized which is noted for radiographic sensitivity. Moderate soft tissue swelling over the lateral malleolus. There is no acute fracture/dislocation evident in t he left ankle. Well-corticated ossific fragmentation from the medial malleolus could reflect product of old trauma. The ankle mortise shows slight asymmetric medial narrowing suggesting possible old li gamentous injury. There is no acute fracture or dislocation evident in the left foot. Some flexion of the toes is prese nt. Small inferior calcaneal spur. The joint spaces in the left foot are preserved. Overlying soft t issue is unremarkable. IMPRESSION: There is no acute fracture or dislocation in the left ankle or foot.
--- NOTE | 2022-05-23 16:31 | XR ---
EXAMINATION TYPE: XR Hip Bilateral and AP pelvis DATE OF EXAM: 05/23/2022 COMPARISON: NONE HISTORY: Fall injury of pelvic and bilateral hip pain. TECHNIQUE: A single AP view of the pelvis is obtained. Two views of the hip are obtained. FINDINGS: There is no acute fracture/dislocation evident in the pelvis. Symmetric mild axial joint s pace loss of both hips. Pubic symphysis is intact. Sacroiliac joints are preserved. The overlying so ft tissue appears unremarkable. Two views of bilateral hips show no acute fracture or dislocation. No focal lytic or sclerotic lesio n seen in the proximal femurs bilaterally. The overlying soft tissue is unremarkable bilaterally. IMPRESSION: There is no acute fracture or dislocation in the pelvis or either hip.
--- NOTE | 2022-05-23 16:40 | ED ---
Fall HPI - General Chief Complaint: Fall Stated Complaint: Fall,Body Pain Time Seen by Provider: 05/23/22 15:31 Source: patient, RN notes reviewed Mode of arrival: wheelchair - History of Present Illness Initial Comments: Patient is a pleasant 66-year-old female presented to the emergency room after falling upwards up 4 steps yesterday with complaints of left foot and ankle pain bilateral hip and leg stiffness along with neck pain. She reports having chronic hypotension but states that this was not playing a role in his her fall yesterday as it was more of a trip and fall getting her foot caught on the step program. She denies any loss of consciousness pre-to prior to or after the fall. She denies any dizziness prior to or after the fall. She states that she hit the lower aspect of the back of her head which is where her primary pain is. She did take ibuprofen at home without significant improvement in symptoms. She states that her left foot and ankle rolled and she has had pain and swelling with decreased range of motion in that joint since the time of injury. She does not take any blood thinners. She has a past medical history significant for diabetes, GERD, hypertension with orthostatic hypotension, and osteoarthritis. - Related Data Home Medications Medication Instructions Recorded Confirmed Calcium Carbonate/Vitamin D3 1 tab PO DAILY 01/15/17 01/22/17 [Calcium 600-Vit D3 400 Caplet] FLUoxetine HCL [PROzac] 10 mg PO BID 01/15/17 01/22/17 Ivarest 1 applic TOPICAL DAILY 01/15/17 01/22/17 Lisinopril/Hydrochlorothiazide 1 tab PO DAILY 01/15/17 01/22/17 [Zestoretic 20-25] Multivitamin [Men's Multi-Vitamin] 1 tab PO DAILY 01/15/17 01/22/17 Omeprazole/Sodium Bicarbonate 1 cap PO DAILY 01/15/17 01/22/17 [Zegerid 20 mg Capsule] Pioglitazone [Actos] 30 mg PO DAILY 01/15/17 01/22/17 metFORMIN HCL [Glucophage] 500 mg PO BID 01/15/17 01/22/17 sitaGLIPtin [Januvia] 100 mg PO DAILY 01/15/17 01/22/17 Previous Rx's Medication Instructions Recorded HYDROcodone/APAP 5-325MG [Brethren 1 - 2 tab PO Q4-6H PRN #90 tab 01/23/17 5-325] Meloxicam [Mobic] 7.5 mg PO DAILY tab 01/23/17 Sennosides-Docusate Sodium 1 tab PO BID #60 tablet 01/23/17 [Senokot-S] Allergies Allergy/AdvReac Type Severity Reaction Status Date / Time No Known Allergies Allergy Verified 05/23/22 12:14 Review of Systems ROS Statement: Those systems with pertinent positive or pertinent negative responses have been documented in the HPI. ROS Other: All systems not noted in ROS Statement are negative. Past Medical History Past Medical History: Diabetes Mellitus, GERD/Reflux, Hypertension, Osteoarthritis (OA), Skin Disorder Additional Past Medical History / Comment(s): intermittent hypotension History of Any Multi-Drug Resistant Organisms: None Reported Past Surgical History: Orthopedic Surgery Additional Past Surgical History / Comment(s): fatty tumor removed from shoulder, repair of fx. left hand, laser eye surg. Past Anesthesia/Blood Transfusion Reactions: No Reported Reaction Past Psychological History: Anxiety Past Alcohol Use History: Occasional Past Drug Use History: None Reported - Past Family History Mother Family Medical History: Cancer, Deep Vein Thrombosis (DVT) General Exam Limitations: no limitations General appearance: alert, in no apparent distress Head exam: Present: atraumatic, normocephalic, normal inspection Eye exam: Present: normal appearance, PERRL, EOMI. Absent: scleral icterus, conjunctival injection, periorbital swelling ENT exam: Present: normal exam, mucous membranes moist Neck exam: Present: normal inspection, tenderness (Upper posterior), full ROM. Absent: meningismus Respiratory exam: Present: normal lung sounds bilaterally. Absent: respiratory distress, wheezes, rales, rhonchi, stridor Cardiovascular Exam: Present: regular rate, normal rhythm, normal heart sounds. Absent: systolic murmur, diastolic murmur, rubs, gallop, clicks GI/Abdominal exam: Present: soft, normal bowel sounds. Absent: distended, tenderness, guarding, rebound, rigid Rectal exam: Present: deferred Left Hip exam: Present: normal inspection, full ROM Ankle exam: Present: tenderness, swelling. Absent: full ROM (limited by swelling), ecchymosis Foot/Toe exam: Present: tenderness, swelling, ecchymosis. Absent: full ROM, abrasion, dislocation, puncture wound, foreign body Neurovascular tendon exam: Present: no vascular compromise Gait: observed and limited by pain Right Hip exam: Present: normal inspection, full ROM Neurovascular tendon exam: Present: no vascular compromise Back exam: Present: normal inspection. Absent: tenderness Neurological exam: Present: alert, oriented X3, CN II-XII intact Psychiatric exam: Present: normal affect, normal mood Skin exam: Present: warm, dry, intact, normal color. Absent: rash Course Vital Signs 05/23/22 05/23/22 05/23/22 12:11 12:14 12:16 Temperature 98.2 F Pulse Rate 82 Respiratory 14 Rate Blood Pressure 81/51 89/60 O2 Sat by Pulse 98 Oximetry 05/23/22 17:13 Temperature Pulse Rate 80 Respiratory 18 Rate Blood Pressure 100/60 O2 Sat by Pulse 97 Oximetry Medical Decision Making - Medical Decision Making 66-year-old female presenting to the emergency room after falling upwards up 4 steps yesterday with complaints of left foot and ankle pain, bilateral hip and leg stiffness with movement along with neck pain. She reports also hitting the front of her lower aspect of her neck/head; she is not on blood thinners and did not lose consciousness she is no significant pre-or post event. She has chronic hypotension. Will obtain x-ray of the left foot and ankle, bilateral hips and pelvis along with CT of the cervical spine and head. No indication for laboratory studies. Will give Toradol IM for pain. Pain improved with IM Toradol. CT of the CT of the cervical spine and head without contrast image interpreted by me demonstrating no acute intracranial process including bleed or mass effect. No skull fracture. Cervical spine image reveals no dislocation or fracture. X-ray of bilateral hips and pelvis image intravertebral me showing no acute fracture or dislocation. X-ray of the left foot and ankle image interpreted by me showing possible navicular fracture atte mpted to clarify with radiologist however radiologist not available at this time. Will proceed forward with precautions regarding possible navicular fracture and have patient follow-up with orthopedist. Radiologist reports reviewed. Posterior left lower lip split applied without complication. Neurovascularly intact pre-and post-splint application. Discussed follow-up care needed with orthopedist nonweightbearing status, use of anti-inflammatory or Tylenol [id number] as needed for pain and elevation when possible. Will discharge home in stable condition with splint intact. Case discussed with Dr. Skinner. - Radiology Data Radiology results: report reviewed, image reviewed Disposition Clinical Impression: Fall, Closed navicular fracture of left foot Disposition: HOME SELF-CARE Condition: Stable Instructions (If sedation given, give patient instructions): Foot Fracture in Adults (ED), Fall Prevention (ED) Additional Instructions: Please maintain splint use and nonweightbearing status until follow-up with orthopedist. Please contact Dr. Michael your already established orthopedist for follow-up regarding possible left navicular fracture. Please utilize Tylenol or ibuprofen [id number] as needed for pain. Elevation of the left ankle is encouraged. Please follow-up with your primary care provider Please return to the Emergency Department if symptoms worsen or any other concerns. Is patient prescribed a controlled substance at d/c from ED?: No Referrals: Silverio Orellana MD [Primary Care Provider] - 1-2 days Rogelio Michael DO [Doctor of Osteopathic Medicine] - 1-2 days Time of Disposition: 17:20
[2022-05-23 17:48] VITALS: BP 100/60; PULSE 80; RESP 18
== END 2022-05-23 17:48 | disposition home or self-care (01) ==
LOC: EC 11:38
DX: S92.252A Displaced fracture of navicular [scaphoid] of left foot, initial encounter for closed fracture (principal); E11.9 Type 2 diabetes mellitus without complications; I10 Essential (primary) hypertension; M19.90 Unspecified osteoarthritis, unspecified site; F41.9 Anxiety disorder, unspecified; Z79.899 Other long term (current) drug therapy; W10.9XXA Fall (on) (from) unspecified stairs and steps, initial encounter
CPT/HCPCS: 73521; 73610; 73630; 72125; 70450; 99284; 96372; J1885

== ENCOUNTER → 2022-07-10 | Outpatient (CLI) | payer MEDICARE ==
--- NOTE | 2022-07-10 17:35 | XR ---
EXAMINATION TYPE: PA chest and left rib series, 5 views DATE OF EXAM: 07/10/2022 Comparison: 12/11/2019 Clinical History: 67-year-old female S29.9XXA UNSPECIFIED INJURY OF THORAX, INITIAL ENC Findings: Heart upper limits of normal in size. Ectatic/tortuous thoracic aorta. Mild hyperinflation. Strandy a telectasis lower lungs. No consolidation or pleural effusion. There is slight step-off along the anterior left 10th rib and. No other displaced left rib fracture i s seen. Impression: 1. Slight step-off along the anterior left 10th rib end. Early free point tenderness here to exclude a subtle nondisplaced rib fracture. 2. Possible underlying COPD. Clinically correlate. Otherwise, no acute process seen.
== END | disposition home or self-care (01) ==
LOC: RADXRMAIN 15:06
PROVIDERS: ATTEND Family Medicine
DX: S29.9XXA Unspecified injury of thorax, initial encounter (principal)

== ENCOUNTER → 2022-09-12 | Outpatient (CLI) | payer MEDICARE ==
--- NOTE | 2022-09-12 12:43 | US ---
EXAMINATION TYPE: US liver DATE OF EXAM: 09/12/2022 COMPARISON: NONE CLINICAL HISTORY: K76.89 OTHER DISEASES OF LIVER. Liver disease TECHNIQUE: Multiple sonographic images of the right upper quadrant are obtained. FINDINGS: EXAM MEASUREMENTS: Liver Length: 12.6 cm Gallbladder Wall: .2 cm CBD: .6 cm Right Kidney: 9.6 x 5.3 x 5.2 cm GEOGRAPHY TEACHER NOTES: Pancreas: Obscured by bowel gas Liver: Increased attenuation two anechoic areas seen largest 3.8 x 3.1 x 4.6 cm. Gallbladder: wnl Evidence for sonographic Patterson's sign: no CBD: wnl Right Kidney: wnl IMPRESSION: 1. Hepatic cysts
== END | disposition home or self-care (01) ==
LOC: RADUSWWP 11:58
PROVIDERS: ATTEND Internal Medicine Gastroenterology
DX: K76.89 Other specified diseases of liver (principal)
CPT/HCPCS: 76705

== ENCOUNTER → 2022-10-25 | Outpatient (CLI) | payer MEDICARE ==
--- NOTE | 2022-10-25 17:57 | BD ---
EXAMINATION TYPE: Axial Bone Density DATE OF EXAM: 10/25/2022 CLINICAL HISTORY: 67 years old Female. ICD-10 CODE: Z13.820 SCREENING FOR OSTEOPOROSIS Height: 61.5 in Weight: 196 lbs FRAX RISK QUESTIONS: History of Fracture in Adulthood: lt hand age 52 RISK FACTORS HISTORY OF: Active: yes Postmenopausal woman: age 50 Take estrogen and/or progesterone medications: not now How lon years MEDICATIONS: Additional Medications: calcium, vit d, blood pressure meds, diabetes meds, anxiety meds EXAM MEASUREMENTS: Bone mineral densitometry was performed using the Nubefy System. Bone mineral density as measured about the Lumbar spine is: ----- L1-L4(G/cm2): 1.084 T Score Values are as follows: ----- L1: -2.0 ----- L2: -1.8 ----- L3: -0.1 ----- L4: 0.0 ----- L1-L4: -0.8 Z Score Values are as follows: ----- L1: -1.1 ----- L2: -1.0 ----- L3: 0.7 ----- L4: 0.8 ----- L1-L4: 0.0 Bone mineral density baseline Bone mineral density about the R hip (g/cm2): 0.949 Bone mineral density about the L hip (g/cm2): 0.928 T Score values are as follows: -----R Neck: -0.7 -----L Neck: -1.0 -----R Total: -0.5 -----L Total: -0.6 Z Score values are as follows: -----R Neck: 0.3 -----L Neck: 0.0 -----R Total: 0.3 -----L Total: 0.1 Bone mineral density baseline FRAX%s: The graph provided illustrates a 12.8% chance for a major osteoporotic fx and a 1.0% chance f or the hips probability for fx in 10 years time. IMPRESSION: Normal (Values between +1 and -1 indicate normal bone mass). Note that measurements are bordering on osteopenia. Consider repeating this study in 5 years or sooner if there is some new clinical indicat ion. NOTE: T-SCORE=SD OF THE YOUNG ADULT MEAN.
== END | disposition home or self-care (01) ==
LOC: RADBDWWP 11:11
PROVIDERS: ATTEND Family Medicine
DX: Z13.820 Encounter for screening for osteoporosis (principal); M85.89 Other specified disorders of bone density and structure, multiple sites
CPT/HCPCS: 77080

== ENCOUNTER → 2023-10-01 | Outpatient (CLI) | payer MEDICARE ==
[2023-10-01 11:51] LABS: Partial Thromboplastin Time 24.1 sec (22.0-30.0)
[2023-10-01 15:59] LABS: HCT 31.3 % (37.2-46.3); HGB 9.4 g/dL (12.0-15.0); MCH 25.7 pg (27.0-32.0); MCV 85.5 FL (80.0-97.0); Mean Platelet Volume 9.8 FL (9.5-12.2); NRBC Per 100 WBC 0 X 10*3/uL (0.00-0.01); Platelet Count 149 X 10*3/uL (140-440); RBC 3.66 X 10*6/uL (4.10-5.20)
[2023-10-01 16:02] LABS: Prothrombin Time 10.8 sec (10.0-12.5)
[2023-10-01 16:13] LABS: ALT 13 U/L (8-44); AST 19 U/L (13-35); Albumin 4.1 g/dL (3.8-4.9); Albumin/Globulin Ratio 1.95 Ratio (1.60-3.17); Alkaline Phosphatase 46 U/L (41-126); BUN/Creat Ratio 16.44 Ratio (12.00-20.00); Blood Urea Nitrogen 14.8 mg/dL (9.0-27.0); Calcium 9.6 mg/dL (8.7-10.3); Carbon Dioxide 22.4 mmol/L (21.6-31.8); Chloride 107 mmol/L (96-109); Globulin 2.1 g/dL (1.6-3.3); Glucose 96 mg/dL (70-110); Sodium 141 mmol/L (135-145); Total Bilirubin 0.2 mg/dL (0.3-1.2); Total Protein 6.2 g/dL (6.2-8.2)
== END | disposition home or self-care (01) ==
LOC: LABPAT 10:46
PROVIDERS: ATTEND Orthopaedic Surgery
DX: Z01.812 Encounter for preprocedural laboratory examination (principal); M17.12 Unilateral primary osteoarthritis, left knee; R00.1 Bradycardia, unspecified; Z22.322 Carrier or suspected carrier of Methicillin resistant Staphylococcus aureus
CPT/HCPCS: 36415; 80053; 85027; 85610; 85730; 87070; 93005

== ENCOUNTER → 2023-10-03 | Outpatient (CLI) | payer MEDICARE ==
--- NOTE | 2023-10-07 09:23 | MM ---
Reason for Exam: Screening (asymptomatic). Last mammogram was performed 1 year(s) and 10 month(s) ago. Patient History: Menarche at age 14. Patient has no children. Postmenopausal. Patient used Hormonal Contraceptives for 15 years. Estrogen and Progesterone, starting at age 50 for 3 years. Maternal aunt had breast cancer. Risk Values: Susi 5 year model risk: 1.7%. NCI Lifetime model risk: 5.6%. Prior Study Comparison: 07/03/2019 Bilateral Screening Mammogram, [facility]. 10/27/2020 Bilateral Screening Mammogram, [facility]. 12/13/2021 Bilateral MG 3D screening mammo w/cad, [facility]. Tissue Density: The breasts are heterogeneously dense, which may obscure small masses. Findings: Analyzed By CAD. There is no suspicious group of microcalcifications or new suspicious mass in either breast. Overall Assessment: Benign, BI-RAD 2 Management: Screening Mammogram of both breasts in 1 year. . Patient should continue monthly self-breast exams. A clinical breast exam by your physician is recommended on an annual basis. This exam should not preclude additional follow-up of suspicious palpable abnormalities. Note on Susi scores and lifetime risk: 1. A Susi score greater than 3% is considered moderate risk. If this is the case, consider specialist referral to assess eligibility for a risk reducing agent. 2. If overall lifetime risk for the development of breast cancer is 20% or higher, the patient may qualify for future screening with alternating mammogram and breast MRI. Electronically signed and approved by: Rafael Dominguez M.D. Radiologis
== END | disposition home or self-care (01) ==
LOC: RADMAMWWP 13:25
PROVIDERS: ATTEND Family Medicine
DX: Z12.31 Encounter for screening mammogram for malignant neoplasm of breast (principal); Z78.0 Asymptomatic menopausal state; Z80.3 Family history of malignant neoplasm of breast
CPT/HCPCS: 77063; 77067

== ENCOUNTER → 2023-11-05 | Outpatient (CLI) | payer MEDICARE ==
[2023-11-05 15:51] LABS: HCT 34.3 % (37.2-46.3); HGB 11.2 g/dL (12.0-15.0); MCH 27.1 pg (27.0-32.0); MCHC 32.7 g/dL (32.0-37.0); MCV 82.9 FL (80.0-97.0); Mean Platelet Volume 10.2 FL (9.5-12.2); NRBC Per 100 WBC 0 X 10*3/uL (0.00-0.01); Platelet Count 176 X 10*3/uL (140-440); RBC 4.14 X 10*6/uL (4.10-5.20); RDW 16.3 % (11.5-14.5); WBC 6.82 X 10*3/uL (4.50-10.00)
[2023-11-05 16:31] LABS: % Iron Saturation 8.53 (12.00-45.00); Ferritin 25.7 ng/mL (10.0-291.0)
== END | disposition home or self-care (01) ==
LOC: LABWHC1 11:52
PROVIDERS: ATTEND Internal Medicine Gastroenterology
DX: D64.9 Anemia, unspecified (principal)
CPT/HCPCS: 36415; 82607; 82728; 82746; 83540; 83550; 85027; 85045

== ENCOUNTER 2023-12-04 07:07 | Day surgery (SDC) | payer MEDICARE ==
[2023-12-02 08:37] VITALS: BMI 32.5
[2023-12-04] MEDS ORDERED: LIDOCAINE 1% (10MG/ML) FOR IV START INTRADERMA PRN (07:11)
[2023-12-04] MEDS ORDERED: LACTATED RINGERS 1,000 ML IV SCH (07:11)
[2023-12-04] MEDS: IV FLUID CONTINUATION 1,000 ML IV ONE (08:15)
[2023-12-04 08:18] LABS: Glucose,Whole Blood 117 mg/dL (70-110)
[2023-12-04] MEDS ORDERED: PROPOFOL 10 MG/ML 20 ML VIAL IV ONE (08:19)
[2023-12-04] MEDS ORDERED: LIDOCAINE 1% INJ 10MG/ML (20 ML MDV) ONE (08:19)
[2023-12-04 08:23] VITALS: RESP 16; TEMP 97.6
--- NOTE | 2023-12-04 08:39 | P.PCN ---
Date of Procedure: 12/04/23 Procedure(s) Performed: Brief history: Patient is a pleasant 68-year-old white female scheduled for an elective upper endoscopy as well as colonoscopy as a part of evaluation of iron deficiency anemia. Procedure performed: Esophagogastroduodenoscopy with biopsy Colonoscopy Preoperative diagnosis: Iron deficiency anemia [place] [facility] [place] After informed consent was obtained from the patient was brought into the endoscopy unit and IV sedation was administered by anesthesia under continuous monitoring. Initially upper endoscopy was done. The Olympus GF 160 video endoscope was inserted inserted into the mouth and esophagus intubated without any difficulty and was gradually advanced into the stomach and duodenum and carefully examined. The bulb and second part of the duodenum appeared normal. This were done from the duodenum to evaluate for celiac disease. The scope was then withdrawn into the stomach adequately insufflated with air and upon careful examination the antrum had mild gastritis and biopsies were done from this area. There were several small gastric polyps in the gastric body that was also biopsied. Rest of the body, cardia and fundus appeared normal. The scope was then withdrawn into the esophagus. Mild hiatal hernia noted. The GE junction was located at 34 cm to the incisors. It appeared irregular with no erythema erosions or ulcerations. There was evidence of short segment Swan's esophagus extending 3 mm proximal to the GE junction which was biopsied. Rest of the esophagus appeared normal. Patient tolerated the procedure well. At this time the patient continued to remain sedation. Initial digital rectal examination was normal. Olympus CF 160 video colonoscope was then inserted into the rectum and gradually advanced to the cecum without any difficulty. Careful examination was performed as the scope was gradually being withdrawn. The prep was excellent. The cecum, ascending colon, transverse colon, descending colon, sigmoid colon and rectum appeared normal. Retroflexion was performed in the rectum and no lesions were noted. Patient tolerated the procedure well. Impression: 1. Upper endoscopy revealed small hiatal hernia, short segment Swan's esophagus, gastric polyps and mild antral gastritis 2. Colonoscopy was within normal limits with no evidence of colitis or colorectal neoplasia Recommendations: Findings of this examination were discussed with the patient as well as family. She was advised to follow-up with the biopsy results. If the biopsy confirms the presence of Swan's esophagus, recommended repeat EGD in 3 years. Recommend repeat colonoscopy in 10 years.
[2023-12-04 09:12] VITALS: BP 110/68; PULSE 84
== END 2023-12-04 09:35 | disposition home or self-care (01) ==
LOC: ORWHC2ENDO 07:07
PROVIDERS: ATTEND Internal Medicine Gastroenterology
DX: Z12.11 Encounter for screening for malignant neoplasm of colon (principal); K29.50 Unspecified chronic gastritis without bleeding; K22.70 Barrett's esophagus without dysplasia; K31.7 Polyp of stomach and duodenum; K44.9 Diaphragmatic hernia without obstruction or gangrene; D50.9 Iron deficiency anemia, unspecified; K21.9 Gastro-esophageal reflux disease without esophagitis; I10 Essential (primary) hypertension; E11.69 Type 2 diabetes mellitus with other specified complication; E78.5 Hyperlipidemia, unspecified; F41.9 Anxiety disorder, unspecified; Z88.7 Allergy status to serum and vaccine; Z87.891 Personal history of nicotine dependence; Z79.84 Long term (current) use of oral hypoglycemic drugs; Z79.899 Other long term (current) drug therapy
CPT/HCPCS: 88305; 43239; J2001; J2704; G0121

== ENCOUNTER 2024-01-13 10:02 | Emergency (ER) | payer MEDICARE ==
[2024-01-13 10:12] VITALS: RESP 18; TEMP 98.6
--- NOTE | 2024-01-13 10:30 | ED ---
Fall HPI - General Chief Complaint: Fall Stated Complaint: fall Time Seen by Provider: 01/13/24 10:14 Source: patient, RN notes reviewed Mode of arrival: wheelchair Limitations: no limitations - History of Present Illness Initial Comments: This is a 68-year-old female who presents to the emergency department for a fall. States that she was dreaming about jumping out of windows and ended up falling off of her bed. States that she fell about 3 feet. She hit the front of her head on the ground and also injured the right side of her body. Currently complaining of a headache, upper back pain, right leg pain, and right shoulder pain. Denies any loss of consciousness. Not taking any blood thinners. MD Complaint: fall - Related Data Home Medications Medication Instructions Recorded Confirmed FLUoxetine HCL [PROzac] 10 mg PO BID 01/15/17 12/04/23 Lisinopril/Hydrochlorothiazide 1 tab PO QAM 01/15/17 12/04/23 [Zestoretic 20-25] Omeprazole/Sodium Bicarbonate 1 cap PO DAILY 01/15/17 12/04/23 [Zegerid 20 mg Capsule] Pioglitazone [Actos] 30 mg PO DAILY 01/15/17 12/04/23 metFORMIN HCL [Glucophage] 500 mg PO BID 01/15/17 12/04/23 sitaGLIPtin [Januvia] 100 mg PO DAILY 01/15/17 12/04/23 Atorvastatin (Unknown Dose) 1 tab PO HS 12/02/23 12/04/23 Cholecalciferol [Vitamin D3 (25 100 mcg PO DAILY 12/02/23 12/04/23 Mcg = 1000 Iu)] Iron (Unknown Dose) 1 tab PO DAILY 12/02/23 12/04/23 Multivitamins, Thera [Multivitamin 1 tab PO DAILY 12/02/23 12/04/23 (formulary)] Previous Rx's Medication Instructions Recorded Cyclobenzaprine [Flexeril] 10 mg PO TID PRN #30 tab 01/13/24 Lidocaine 5% Patch [Lidoderm] 1 patch TOPICAL DAILY PRN #30 patch 01/13/24 Naproxen Sodium 550 mg PO BID PRN #30 tablet 01/13/24 Allergies Allergy/AdvReac Type Severity Reaction Status Date / Time COVID-19 vacc, bv (Orig, AdvReac Dizziness, Verified 01/13/24 10:12 Omicron BA.4/5) (Moderna) leg [From Moderna COVID Bival(6m numbness up)(PF)] Review of Systems ROS Statement: Those systems with pertinent positive or pertinent negative responses have been documented in the HPI. ROS Other: All systems not noted in ROS Statement are negative. Past Medical History Past Medical History: Diabetes Mellitus, GERD/Reflux, Hypertension, Osteoarthritis (OA), Skin Disorder Additional Past Medical History / Comment(s): intermittent hypotension, anemia History of Any Multi-Drug Resistant Organisms: None Reported Past Surgical History: Orthopedic Surgery Additional Past Surgical History / Comment(s): fatty tumor removed from shoulder, repair of fx. left hand, laser eye surg. Past Anesthesia/Blood Transfusion Reactions: No Reported Reaction Past Psychological History: Anxiety Smoking Status: Never smoker Past Alcohol Use History: Occasional Past Drug Use History: None Reported - Past Family History Mother Family Medical History: Cancer, Deep Vein Thrombosis (DVT) General Exam Limitations: no limitations General appearance: alert, in no apparent distress Head exam: Present: atraumatic, normocephalic, normal inspection Eye exam: Present: normal appearance, PERRL, EOMI. Absent: scleral icterus, conjunctival injection, periorbital swelling Respiratory exam: Present: normal lung sounds bilaterally. Absent: respiratory distress, wheezes, rales, rhonchi, stridor Cardiovascular Exam: Present: regular rate, normal rhythm, normal heart sounds. Absent: systolic murmur, diastolic murmur, rubs, gallop, clicks Extremities exam: Present: other (Tenderness to palpation over the right hip and femur. No deformities. Full range of motion. 2+ DP and PT pulses.) Back exam: Present: other (Tenderness to palpation of the thoracic spine.) Neurological exam: Present: alert, oriented X3, CN II-XII intact Psychiatric exam: Present: normal affect, normal mood Skin exam: Present: warm, dry, intact, normal color. Absent: rash Course Vital Signs 01/13/24 01/13/24 01/13/24 10:06 10:16 11:23 Temperature 98.6 F Pulse Rate 67 63 71 Respiratory 18 18 Rate Blood Pressure 89/59 96/64 105/71 O2 Sat by Pulse 100 100 Oximetry 01/13/24 12:40 Temperature Pulse Rate 80 Respiratory 18 Rate Blood Pressure 132/78 O2 Sat by Pulse 98 Oximetry Medical Decision Making - Medical Decision Making This is a 68 year old female who presents to the emergency department for a fall. Was pt. sent in by a medical professional or institution? @ -No Did you speak to anyone other than the patient for history? @ -No Did you review nursing and triage notes? @ -Yes, and I agree, it is accurate with regards to the patient's symptoms. Were old charts reviewed? @ -No Differential Diagnosis? @ -Differential Musculoskeletal: Muscular strain, contusion, ligament sprain, fracture, arthritis, septic arthritis, bursitis, cellulitis, muscle spasm, nerve compression, DVT, arterial occlusion, herpes zoster, electrolyte abnormality, tumor.... This is not meant to be in all inclusive list EKG interpreted by me (3pts min.)? @ -Not obtained X-rays interpreted by me (1pt min.)? @ -Chest x-ray obtained, my interpretation identifies no localized consolidations or infiltrates. X-ray of the right hip/pelvis, right femur, and right shoulder obtained. My interpretation identifies no acute fractures. CT interpreted by me (1pt min.)? @ -Computed tomography scan of the brain and c-spine obtained. My interpretation identifies no evidence of an acute intracranial hemorrhage, skull fracture, or cervical spine fracture. U/S interpreted by me (1pt. min.)? @ -Not obtained What testing was considered but not performed? (CT, X-rays, U/S, labs)? Why? @ -None What meds were considered but not given? Why? @ -None Did you discuss the management of the patient with other professionals? @ -No Did you reconcile home meds? @ -No Was smoking cessation discussed for >3mins.? @ -No Was critical care preformed (if so, how long)? @ -No Were there social determinants of health that impacted care today? How? (Homelessness, low income, unemployed, alcoholism, drug addiction, transportation, low edu. Level, literacy, decrease access to med. care, penitentiary, rehab)? @ -No Was there de-escalation of care discussed even if they declined? (Discuss DNR or withdrawal of care, Hospice)? @ -No What co-morbidities impacted this encounter? (DM, HTN, Smoking, COPD, CAD, Cancer, CVA, Hep., AIDS, mental health diagnosis, sleep apnea, morbid obesity)? @ -Osteoarthritis Was patient admitted / discharged? @ -Discharged. CT scan of the brain and C-spine obtained revealing no acute process. X-ray of the chest, right hip/pelvis, right femur, and right shoulder obtained also revealing no acute injuries. Patient was noted to have lower BP on arrival. States that this is an ongoing issue for her and they are in the process of adjusting her BP medications. Denies any dizziness. Pain was managed in the emergency department. Prescription for naproxen, Flexeril, and lidocaine patches provided. Advised follow-up with her PCP for reevaluation. Case discussed with ED attending Dr. Glynn. Return precautions reviewed in depth, the patient is instructed to return to the emergency department with any new, worsening, or concerning symptoms. Patient verbalized understanding. Undiagnosed new problem with uncertain prognosis? @ -None Drug Therapy requiring intensive monitoring for toxicity (Heparin, Nitro, Insulin, Cardizem)? @ -None Were any procedures done? @ -None Diagnosis/symptom? @ -Fall, head injury, right leg pain Acute, or Chronic, or Acute on Chronic? @ -Acute Uncomplicated (without systemic symptoms) or Complicated (systemic symptoms)? @ -Uncomplicated Side effects of treatment? @ -None Exacerbation, Progression, or Severe Exacerbation] @ -Not applicable Poses a threat to life or bodily function? @ -No - Radiology Data Radiology results: report reviewed, image reviewed Disposition Clinical Impression: Fall, Head injury, Right leg pain Disposition: HOME SELF-CARE Instructions (If sedation given, give patient instructions): Leg Pain (ED), Hip Contusion (ED) Additional Instructions: Return to the emergency department with any new, worsening, or concerning symptoms. Take the naproxen twice daily with Tylenol as needed for pain relief. You can take the Flexeril up to 3 times daily. Be aware that this may make you drowsy. You can also apply the lidocaine patches daily. Follow up with your primary care provider in 1-2 days. Prescriptions: Cyclobenzaprine [Flexeril] 10 mg PO TID PRN #30 tab PRN Reason: Pain Lidocaine 5% Patch [Lidoderm] 1 patch TOPICAL DAILY PRN #30 patch PRN Reason: Pain Naproxen Sodium 550 mg PO BID PRN #30 tablet PRN Reason: Pain Is patient prescribed a controlled substance at d/c from ED?: No Referrals: Silverio Orellana MD [Primary Care Provider] - 1-2 days Time of Disposition: 12:03
--- NOTE | 2024-01-13 10:35 | XR ---
EXAMINATION TYPE: XR chest 2V DATE OF EXAM: 01/13/2024 COMPARISON: 07/10/2022 HISTORY: Shortness of breath TECHNIQUE: Frontal and lateral views of the chest are obtained. FINDINGS: Scattered senescent parenchymal changes noted. Hyperinflation compatible with COPD. No evidence for infiltrate. No evidence for atelectasis. Heart size is stable. Mediastinal structures are stable and grossly unremarkable. No evidence for hilar prominence. Degenerative changes dorsal spine. IMPRESSION: 1. No evidence for acute pulmonary disease.
--- NOTE | 2024-01-13 10:38 | XR ---
EXAMINATION TYPE: XR shoulder complete RT DATE OF EXAM: 01/13/2024 CLINICAL HISTORY: pain TECHNIQUE: Three views of the right shoulder are obtained. COMPARISON: None FINDINGS: There is no acute fracture/dislocation evident. Small focus of calcific tendinopathy seen adjacent to the greater tuberosity. The acromioclavicular and glenohumeral joint spaces appear within normal limits. The visualized ribs are intact and unremarkable. IMPRESSION: 1. There is no acute fracture or dislocation. ICD 10 NO FRACTURE, INITIAL EVALUATION
--- NOTE | 2024-01-13 10:45 | XR ---
EXAMINATION TYPE: XR Hip RT and AP Pelvis DATE OF EXAM: 01/13/2024 CLINICAL HISTORY: pain TECHNIQUE: AP and frogleg views of the right hip are obtained. Single view pelvis is submitted as we ll. COMPARISON: None. FINDINGS: There is no acute fracture/dislocation evident. The joint space appears within normal li mits. The overlying soft tissue appears unremarkable. IMPRESSION: 1. There is no acute fracture or dislocation. ICD 10 NO FRACTURE, INITIAL EVALUATION
--- NOTE | 2024-01-13 10:51 | XR ---
EXAMINATION TYPE: XR femur RT DATE OF EXAM: 01/13/2024 CLINICAL HISTORY: pain TECHNIQUE: Two views of the right femur are obtained. COMPARISON: None. FINDINGS: There is no acute fracture or dislocation seen of the femur. The hip and knee joints appear within normal limits. The overlying soft tissue appears unremarkable. IMPRESSION: There is no acute fracture or dislocation seen of the femur. ICD 10 NO FRACTURE, INITIAL EVALUATION
--- NOTE | 2024-01-13 10:55 | XR ---
EXAMINATION TYPE: XR thoracic spine 2V DATE OF EXAM: 01/13/2024 CLINICAL HISTORY: pain TECHNIQUE: Frontal, lateral, and swimmer's view of thoracic spine are obtained. COMPARISON: None. FINDINGS: Thoracic spine show satisfactory alignment without evidence of acute fracture or dislocatio n. Vertebral body heights are preserved. Moderate multilevel degenerative disc space narrowing and s pondylosis. Visualized ribs are unremarkable. IMPRESSION: No acute fracture or dislocation is seen in the thoracic spine. ICD 10 NO FRACTURE, INIT IAL EVALUATION
[2024-01-13] MEDS: ACETAMINOPHEN TAB 500 MG TAB PO STA (11:04)
[2024-01-13] MEDS: SODIUM CHLORIDE 0.9% 1,000 ML IV STA (11:05)
[2024-01-13] MEDS: ORPHENADRINE 30 MG/ML 2 ML VIAL IVP STA (11:10)
[2024-01-13] MEDS: KETOROLAC 15 MG/ML 1 ML VIAL IVP STA ×2 (11:11→12:32)
--- NOTE | 2024-01-13 11:44 | CT ---
EXAMINATION TYPE: CT brain cspine wo con DATE OF EXAM: 01/13/2024 COMPARISON: 05/23/2022 HISTORY: 68-year-old female with pain after Fall out of bed this am CT DLP: 1347.7 mGycm Automated exposure control for dose reduction was used. Technique: Examination of the head was done in axial plane without intravenous contrast. Coronal and sagittal reconstructions performed. CT of the cervical spine was obtained in axial plane without intravenous injection of contrast mater ial. Coronal and sagittal reformatted images were obtained from the axial views for evaluation of f ractures, spinal alignment and canal. FINDINGS: Head: Suspect a small 6 mm, partially calcified extra-axial lesion anterior right frontal convexity, likely a small meningioma, unchanged from 2021. There is no evidence of acute intracranial hemorrhage, acute ischemic changes, other mass, mass-effe ct, or extra-axial fluid collection. There is no effacement of cerebral sulci or basal subarachnoid cisterns. There is no midline shift. Rodgers-white matter distinction is preserved. Mild central cerebral volume loss and secondary mild prominence to the ventricular system. Partially visualized prominent periapical lucency left maxilla, axial image 205. Rightward nasal sept al deviation. Mild mucosal thickening right ethmoid air cells. Mastoid air cells well pneumatized. Or bits and globes are intact. Cervical spine: No predental space widening or prevertebral soft tissue swelling. Similar degenerative grade 1 bethanie listhesis C7-T1. There is no cranial vertebral abnormality. Fracture of the cervical spine is not see n. Moderate disc/endplate degenerative change C5-C7 levels, similar to 202.. There is no evidence of focal disk herniation. There is no central spinal canal stenosis. Similar bulky thyroid gland. Annua l is partially visualized prominent fluid column within the thoracic esophagus. Sagittal and coronal reformatted images confirm above findings. COMBINED IMPRESSION: 1. Similar mild central cerebral atrophy. No acute intracranial abnormality seen. Suspect a small, in cidental 6 mm meningioma anterior right frontal convexity, unchanged from 2021. 2. No acute fracture of the cervical spine. Unchanged trace grade 1 anterolisthesis C7-T1. 3. New prominent fluid column partially visualized within the thoracic esophagus. Findings may be on the basis of prominent gastroesophageal reflux disease, esophageal dysmotility, or a distal esophagea l stricture. Consider GI referral for further workup/evaluation.
[2024-01-13] MEDS: traMADol 50 MG STARTER PACK 3 TAB BTL PO STA (12:32)
[2024-01-13 12:41] VITALS: BP 132/78; PULSE 80
== END 2024-01-13 12:42 | disposition home or self-care (01) ==
LOC: EC 10:02
DX: S09.90XA Unspecified injury of head, initial encounter (principal); M79.604 Pain in right leg; M19.90 Unspecified osteoarthritis, unspecified site; Z88.7 Allergy status to serum and vaccine; W06.XXXA Fall from bed, initial encounter
CPT/HCPCS: 72070; 73502; 73552; 73030; 71046; 72125; 70450; 99284; 96374; 96375; 96376; 96361; J2360; J1885

== ENCOUNTER → 2024-01-20 | Outpatient (CLI) | payer MEDICARE ==
--- NOTE | 2024-03-03 17:53 | CA ---
Transthoracic Echo Report Name: Anastasiia De Leon Age: 68 Gender: F : 1955 Exam Date: 01/20/2024 15:21 Exam Location: [facility] Ht (in): 65 Wt (lb): 185 Ordering Physician: Silverio Orellana MD Attending/Referring Phys: Simi Wells ALIN Materials Planner/Production Planner Procedure CPT: Indications: Chest Pain Cardiac Hx: Technical Quality: Good Contrast 1: Total Dose (mL): Contrast 2: Total Dose (mL): MEASUREMENTS (Male / Female) Normal Values 2D ECHO LV Diastolic Diameter PLAX 4.4 cm 4.2 - 5.9 / 3.9 - 5.3 cm LV Systolic Diameter PLAX 2.5 cm IVS Diastolic Thickness 1.0 cm 0.6 - 1.0 / 0.6 - 0.9 cm LVPW Diastolic Thickness 1.1 cm 0.6 - 1.0 / 0.6 - 0.9 cm LV Relative Wall Thickness 0.5 RV Internal Dim ED PLAX 3.2 cm LA Volume 45.8 cm??? 18 - 58 / 22 - 52 cm??? LA Volume Index 23.0 cm???/m??? 16 - 28 cm???/m??? M-MODE Aortic Root Diameter MM 3.4 cm LA Systolic Diameter MM 3.4 cm LA Ao Ratio MM 1.0 AV Cusp Separation MM 2.0 cm DOPPLER AV Peak Velocity 107.4 cm/s AV Peak Gradient 4.6 mmHg AV Mean Velocity 75.1 cm/s AV Mean Gradient 2.6 mmHg AV Velocity Time Integral 19.4 cm AI Peak Velocity 288.2 cm/s AI Peak Gradient 33.2 mmHg AI Pressure Half Time 749.6 ms LVOT Peak Velocity 94.8 cm/s LVOT Peak Gradient 3.6 mmHg LVOT Velocity Time Integral 17.4 cm MV Area PHT 2.6 cm??? Mitral E Point Velocity 39.2 cm/s Mitral A Point Velocity 71.9 cm/s Mitral E to A Ratio 0.5 MV Deceleration Time 295.6 ms MV E' Velocity 5.1 cm/s Mitral E to MV E' Ratio 7.6 TR Peak Velocity 255.9 cm/s TR Peak Gradient 26.3 mmHg Right Atrial Pressure 5.0 mmHg Pulmonary Artery Systolic Pressu 31.2 mmHg Right Ventricular Systolic Press 31.2 mmHg FINDINGS Left Ventricle Left ventricular ejection fraction is estimated at 55-60 %. Mildly increased posterior wall thickness. Left ventricular cavity size normal. No obvious regional wall motion abnormalities. Right Ventricle Normal right ventricular size and function. Right ventricular systolic pressure within normal limits. Right Atrium Normal right atrial size. Left Atrium Normal left atrial size. Mitral Valve Structurally normal mitral valve. No evidence for mitral valve prolapse. No mitral stenosis. Trace mitral regurgitation. Aortic Valve Trileaflet aortic valve. No aortic stenosis. Trace aortic regurgitation. Tricuspid Valve Structurally normal tricuspid valve. No tricuspid stenosis. Trace tricuspid regurgitation. Pulmonic Valve Pulmonic valve not well visualized. No pulmonic stenosis. Mild pulmonic regurgitation. Pericardium No pericardial effusion. Aorta Aortic annulus normal. CONCLUSIONS Diagnosis, hypertension, fatigue, chest pain LVH with preserved systolic function Previewed by: Dr. Rudi Rudolph MD (Electronically Signed) Final Date: 03 March 2024 17:52
== END | disposition home or self-care (01) ==
LOC: RADECHMAIN 15:05
PROVIDERS: ATTEND Family Medicine
DX: I10 Essential (primary) hypertension (principal); R07.9 Chest pain, unspecified; R53.83 Other fatigue
CPT/HCPCS: 93306

== ENCOUNTER → 2024-11-05 | Outpatient (CLI) | payer MEDICARE ==
[2024-11-05 13:12] LABS: INR 0.9 (<1.2); Partial Thromboplastin Time 24.4 sec (22.0-30.0); Prothrombin Time 10.6 sec (10.0-12.5)
[2024-11-05 19:35] LABS: HCT 40.4 % (37.2-46.3); HGB 12.6 g/dL (12.0-15.0); MCH 27.9 pg (27.0-32.0); MCHC 31.2 g/dL (32.0-37.0); MCV 89.4 FL (80.0-97.0); Mean Platelet Volume 10.2 FL (9.5-12.2); NRBC Per 100 WBC 0 X 10*3/uL (0.00-0.01); Platelet Count 167 X 10*3/uL (140-440); RBC 4.52 X 10*6/uL (4.10-5.20); RDW 14.6 % (11.5-14.5); WBC 5.12 X 10*3/uL (4.50-10.00)
[2024-11-05 22:01] LABS: ALT 16 U/L (8-44); AST 20 U/L (13-35); Albumin 4.4 g/dL (3.8-4.9); Alkaline Phosphatase 63 U/L (41-126); BUN/Creat Ratio 16.33 Ratio (12.00-20.00); Blood Urea Nitrogen 14.7 mg/dL (9.0-27.0); Calcium 9.5 mg/dL (8.7-10.3); Carbon Dioxide 23.1 mmol/L (21.6-31.8); Chloride 106 mmol/L (96-109); Glucose 111 mg/dL (70-110); Potassium 4.2 mmol/L (3.5-5.5); Sodium 143 mmol/L (135-145); Total Bilirubin 0.4 mg/dL (0.3-1.2); Total Protein 6.4 g/dL (6.2-8.2)
== END | disposition home or self-care (01) ==
LOC: LABPAT 12:26
PROVIDERS: ATTEND Orthopaedic Surgery
DX: Z01.812 Encounter for preprocedural laboratory examination (principal); Z22.322 Carrier or suspected carrier of Methicillin resistant Staphylococcus aureus; M17.12 Unilateral primary osteoarthritis, left knee
CPT/HCPCS: 80053; 85027; 85610; 85730; 87070; 93005